=== PATIENT | male | born 1940 | race Caucasian/White ===

== ENCOUNTER 2020-07-08 19:38 | Inpatient (IN) | payer OTHER, MEDICARE ==
[2020-07-08] MEDS ORDERED: cefTRIAXone 1 GM in Sodium Chloride 0.9% 50 ML IV ONE (20:41)
[2020-07-08] MEDS ORDERED: Lactated Ringers 1,000 ML IV SCH ×2 (20:45→22:13)
[2020-07-08] MEDS ORDERED: Diltiazem 25 MG/5 ML SDV IVPUSH ONE (20:45)
[2020-07-08] MEDS: Sodium Chloride 0.9% 10 ML Syringe FLUSH PRN ×2 (20:51→22:22)
--- NOTE | 2020-07-08 20:51 | EDM.PDOC ---
ED HPI GENERAL MEDICAL PROBLEM - General Chief Complaint: General Stated Complaint: MEDICAL Time Seen by Provider: 07/08/20 20:02 Source of Information: Reports: Patient, Family, Old Records, RN Notes Reviewed History Limitations: Reports: No Limitations - History of Present Illness INITIAL COMMENTS - FREE TEXT/NARRATIVE: 79-year-old gentleman presents emergency department a complaint of fevers and chills, he has been ill for about 10 days progressively getting worse was evaluated in the clinic 2 days prior COVID test at that time was negative, started on doxycycline. He states he has progressively gotten more weak he does feel short of breath does not produce any sputum no urinary symptoms he states the fevers and chills will wax and wane multiple times per day to the point where he is very diaphoretic but chilled. Fevers have been around 100. There is a possible for potential exposure to cold bed as he was recently traveling out of [facility]. The other symptom is that he states he is dizzy with loss of balance that he is noticed over the last couple of days worse when the fever sit difficult for him to walk and he has to hold onto the wall - Related Data Allergies Allergy/AdvReac Type Severity Reaction Status Date / Time No Known Allergies Allergy Verified 07/08/20 20:07 Home Meds: Home Meds Aspirin 325 mg PO DAILY 07/08/20 [History] Doxycycline [Vibramycin] 100 mg PO BID 07/08/20 [History] Flaxseed Oil [Flax Oil] 0 mg PO ASDIRECTED 07/08/20 [History] Glucosam/Chondr/Collagn/Hyalur [Glucosamine & Chondroitin Cap] 0 mg PO ASDIRECTED 07/08/20 [History] Magnesium Gluconate [Mag-G] 27 mg PO DAILY 07/08/20 [History] Potassium Chloride [Klor-Con M20] 20 meq PO DAILY 07/08/20 [History] Ubidecarenone [Co Q-10] 0 mg PO ASDIRECTED 07/08/20 [History] Vitamin B Complex 0 cap PO ASDIRECTED 07/08/20 [History] Past Medical History Cardiovascular History: Reports: Afib Musculoskeletal History: Reports: Fracture Social & Family History - Tobacco Use Smoking Status *Q: Never Smoker - Caffeine Use Caffeine Use: Reports: None - Recreational Drug Use Recreational Drug Use: No ED ROS GENERAL - Review of Systems Review Of Systems: See Below Constitutional: Reports: Fever, Chills, Diaphoresis HEENT: Reports: No Symptoms Respiratory: Reports: Shortness of Breath. Denies: Cough, Sputum Cardiovascular: Reports: Dyspnea on Exertion GI/Abdominal: Reports: No Symptoms : Reports: No Symptoms Musculoskeletal: Reports: No Symptoms Skin: Reports: No Symptoms Neurological: Reports: Dizziness, Difficulty Walking Psychiatric: Reports: No Symptoms ED EXAM, GENERAL - Physical Exam Exam: See Below Exam Limited By: No Limitations General Appearance: Alert, WD/WN, No Apparent Distress Head: Atraumatic, Normocephalic Neck: Normal Inspection, Supple, Non-Tender, Full Range of Motion Respiratory/Chest: No Respiratory Distress, Lungs Clear, Normal Breath Sounds, No Accessory Muscle Use, Chest Non-Tender Cardiovascular: No Murmur, Irregularly Irregular GI/Abdominal: Soft, Non-Tender Extremities: No Pedal Edema Course - Vital Signs Last Recorded V/S: Last Vital Signs Temp 99.8 F 07/08/20 20:05 Pulse 98 07/08/20 21:53 Resp 22 H 07/08/20 21:53 BP 135/68 07/08/20 21:53 Pulse Ox 97 07/08/20 21:53 - Orders/Labs/Meds Orders: Active Orders 24 hr Category Date Time Status EKG Documentation Completion [RC] ASDIRECTED Care 07/08/20 20:43 Active Vital Signs [RC] Q1H Care 07/08/20 20:42 Active Ang Head [CT] Stat Exams 07/08/20 21:52 Ordered Chest 2V [CR] Stat Exams 07/08/20 20:42 Taken Head wo Cont [CT] Stat Exams 07/08/20 21:52 Ordered CULTURE BLOOD [BC] Urgent Lab 07/08/20 20:40 Received CULTURE BLOOD [BC] Urgent Lab 07/08/20 20:45 Received Diltiazem [Cardizem] 100 mg Med 07/08/20 22:00 Active Sodium Chloride 0.9% [Normal Saline] 100 ml IV TITRATE Iopamidol [Isovue-370 (76%)] Med 07/08/20 22:00 Active 100 ml IV . DIRECTED Lactated Ringers [Ringers, Lactated] 1,000 ml Med 07/08/20 22:13 Active IV ASDIRECTED Sodium Chloride 0.9% [Normal Saline] 100 ml Med 07/08/20 22:00 Active IV ASDIRECTED Sodium Chloride 0.9% [Saline Flush] Med 07/08/20 20:41 Active 10 ml FLUSH ASDIRECTED PRN Blood Culture x2 Reflex Set [OM.PC] Urgent Oth 07/08/20 20:42 Ordered Saline Lock Insert [OM.PC] Stat Oth 07/08/20 20:42 Ordered Severe Sepsis Onset Time [OM.PC] Stat Oth 07/08/20 20:42 Ordered EKG 12 Lead [EK] Stat Ther 07/08/20 20:41 Ordered Medication Orders Diltiazem HCl 100 mg/ Sodium (Chloride) 100 mls @ 5 mls/hr IV TITRATE SIVA; Protocol Sodium Chloride (Normal Saline) 100 mls @ 3 mls/sec IV ASDIRECTED SIVA Last Admin: 07/08/20 22:23 Dose: 3 mls/sec Documented by: ISMAEL Lactated Ringer's (Ringers, Lactated) 1,000 mls @ 999 mls/hr IV ASDIRECTED SIVA Iopamidol (Isovue-370 (76%)) 100 ml IV . DIRECTED SIVA Last Admin: 07/08/20 22:23 Dose: 100 ml Documented by: ISMAEL Sodium Chloride (Saline Flush) 10 ml FLUSH ASDIRECTED PRN PRN Reason: Keep Vein Open Last Admin: 07/08/20 22:22 Dose: 10 ml Documented by: Admin: 07/08/20 20:51 Dose: 10 ml Documented by: YAZ Labs: Laboratory Tests 07/08/20 07/08/20 07/08/20 Range/Units 20:40 20:40 20:40 WBC 5.4 (4.5-11.0) K/uL RBC 3.77 L (4.30-5.90) M/uL Hgb 11.2 L (12.0-15.0) g/dL Hct 32.5 L (40.0-54.0) % MCV 86 (80-98) fL MCH 30 (27-31) pg MCHC 35 (32-36) % Plt Count 54 L (150-400) K/uL Neut % (Auto) 62 (36-66) % Lymph % (Auto) 19 L (24-44) % [place] % (Auto) 17 H (2-6) % Eos % (Auto) 0 L (2-4) % Baso % (Auto) 2 H (0-1) % Sodium (140-148) mmol/L Potassium (3.6-5.2) mmol/L Chloride (100-108) mmol/L Carbon Dioxide (21-32) mmol/L Anion Gap (5.0-14.0) mmol/L BUN (7-18) mg/dL Creatinine (0.8-1.3) mg/dL Est Cr Clr Drug Dosing mL/min Estimated GFR (MDRD) (>60) Glucose (74-106) mg/dL Lactic Acid (0.4-2.0) mmol/L Calcium (8.5-10.1) mg/dL Phosphorus 2.8 (2.5-4.9) mg/dL Magnesium 1.9 (1.8-2.4) mg/dL Total Bilirubin (0.2-1.0) mg/dL AST (15-37) U/L ALT (12-78) U/L Alkaline Phosphatase (46-116) U/L Troponin I < 0.017 (0.000-0.056) ng/mL C-Reactive Protein (0.0-0.3) mg/dL Total Protein (6.4-8.2) g/dL Albumin (3.4-5.0) g/dL Globulin (2.3-3.5) g/dL Albumin/Globulin Ratio (1.2-2.2) Lipase 163 (73-393) U/L Procalcitonin ng/mL Urine Color (YELLOW) Urine Appearance (CLEAR) Urine pH (5.0-8.0) Ur Specific Reese (1.008-1.030) Urine Protein (NEGATIVE) mg/dL Urine Glucose (UA) (NEGATIVE) mg/dL Urine Ketones (NEGATIVE) mg/dL Urine Occult Blood (NEGATIVE) Urine Nitrite (NEGATIVE) Urine Bilirubin (NEGATIVE) Urine Urobilinogen (0.2-1.0) EU/dL Ur Leukocyte Esterase (NEGATIVE) Urine RBC (0-5) Urine WBC (0-5) Ur Epithelial Cells Amorphous Sediment Urine Bacteria Urine Mucus 07/08/20 07/08/20 07/08/20 Range/Units 20:40 20:40 20:42 WBC (4.5-11.0) K/uL RBC (4.30-5.90) M/uL Hgb (12.0-15.0) g/dL Hct (40.0-54.0) % MCV (80-98) fL MCH (27-31) pg MCHC (32-36) % Plt Count (150-400) K/uL Neut % (Auto) (36-66) % Lymph % (Auto) (24-44) % [place] % (Auto) (2-6) % Eos % (Auto) (2-4) % Baso % (Auto) (0-1) % Sodium 133 L (140-148) mmol/L Potassium 4.0 (3.6-5.2) mmol/L Chloride 100 (100-108) mmol/L Carbon Dioxide 24 (21-32) mmol/L Anion Gap 13.0 (5.0-14.0) mmol/L BUN 20 H (7-18) mg/dL Creatinine 1.1 (0.8-1.3) mg/dL Est Cr Clr Drug Dosing 51.54 mL/min Estimated GFR (MDRD) > 60 (>60) Glucose 110 H (74-106) mg/dL Lactic Acid 1.5 (0.4-2.0) mmol/L Calcium 7.8 L (8.5-10.1) mg/dL Phosphorus (2.5-4.9) mg/dL Magnesium (1.8-2.4) mg/dL Total Bilirubin 0.8 (0.2-1.0) mg/dL AST 70 H (15-37) U/L ALT 64 (12-78) U/L Alkaline Phosphatase 72 (46-116) U/L Troponin I (0.000-0.056) ng/mL C-Reactive Protein 10.89 H (0.0-0.3) mg/dL Total Protein 6.6 (6.4-8.2) g/dL Albumin 2.8 L (3.4-5.0) g/dL Globulin 3.8 H (2.3-3.5) g/dL Albumin/Globulin Ratio 0.7 L (1.2-2.2) Lipase (73-393) U/L Procalcitonin 3.55 H* ng/mL Urine Color (YELLOW) Urine Appearance (CLEAR) Urine pH (5.0-8.0) Ur Specific Reese (1.008-1.030) Urine Protein (NEGATIVE) mg/dL Urine Glucose (UA) (NEGATIVE) mg/dL Urine Ketones (NEGATIVE) mg/dL Urine Occult Blood (NEGATIVE) Urine Nitrite (NEGATIVE) Urine Bilirubin (NEGATIVE) Urine Urobilinogen (0.2-1.0) EU/dL Ur Leukocyte Esterase (NEGATIVE) Urine RBC (0-5) Urine WBC (0-5) Ur Epithelial Cells Amorphous Sediment Urine Bacteria Urine Mucus 07/08/20 Range/Units 20:57 WBC (4.5-11.0) K/uL RBC (4.30-5.90) M/uL Hgb (12.0-15.0) g/dL Hct (40.0-54.0) % MCV (80-98) fL MCH (27-31) pg MCHC (32-36) % Plt Count (150-400) K/uL Neut % (Auto) (36-66) % Lymph % (Auto) (24-44) % [place] % (Auto) (2-6) % Eos % (Auto) (2-4) % Baso % (Auto) (0-1) % Sodium (140-148) mmol/L Potassium (3.6-5.2) mmol/L Chloride (100-108) mmol/L Carbon Dioxide (21-32) mmol/L Anion Gap (5.0-14.0) mmol/L BUN (7-18) mg/dL Creatinine (0.8-1.3) mg/dL Est Cr Clr Drug Dosing mL/min Estimated GFR (MDRD) (>60) Glucose (74-106) mg/dL Lactic Acid (0.4-2.0) mmol/L Calcium (8.5-10.1) mg/dL Phosphorus (2.5-4.9) mg/dL Magnesium (1.8-2.4) mg/dL Total Bilirubin (0.2-1.0) mg/dL AST (15-37) U/L ALT (12-78) U/L Alkaline Phosphatase (46-116) U/L Troponin I (0.000-0.056) ng/mL C-Reactive Protein (0.0-0.3) mg/dL Total Protein (6.4-8.2) g/dL Albumin (3.4-5.0) g/dL Globulin (2.3-3.5) g/dL Albumin/Globulin Ratio (1.2-2.2) Lipase (73-393) U/L Procalcitonin ng/mL Urine Color Yellow (YELLOW) Urine Appearance Slightly cloudy A (CLEAR) Urine pH 5.5 (5.0-8.0) Ur Specific Reese 1.025 (1.008-1.030) Urine Protein 100 H (NEGATIVE) mg/dL Urine Glucose (UA) Negative (NEGATIVE) mg/dL Urine Ketones Negative (NEGATIVE) mg/dL Urine Occult Blood Trace-intact H (NEGATIVE) Urine Nitrite Negative (NEGATIVE) Urine Bilirubin Negative (NEGATIVE) Urine Urobilinogen 0.2 (0.2-1.0) EU/dL Ur Leukocyte Esterase Negative (NEGATIVE) Urine RBC 0-5 (0-5) Urine WBC 0-5 (0-5) Ur Epithelial Cells Rare Amorphous Sediment Not seen Urine Bacteria Moderate Urine Mucus Rare Meds: Medications Generic Name Dose Route Start Last Admin Trade Name Freq PRN Reason Stop Dose Admin Diltiazem HCl 100 mg/ Sodium 100 mls @ 5 mls/hr 07/08/20 22:00 Chloride IV TITRATE SIVA Protocol 5 MG/HR Sodium Chloride 100 mls @ 3 mls/sec 07/08/20 22:00 07/08/20 22:23 Normal Saline IV 3 mls/sec ASDIRECTED SIVA Administration Lactated Ringer's 1,000 mls @ 999 mls/hr 07/08/20 22:13 Ringers, Lactated IV ASDIRECTED SIVA Iopamidol 100 ml 07/08/20 22:00 07/08/20 22:23 Isovue-370 (76%) IV 100 ml . DIRECTED SIVA Administration Sodium Chloride 10 ml 07/08/20 20:41 07/08/20 22:22 Saline Flush FLUSH 10 ml ASDIRECTED PRN Administration Keep Vein Open Discontinued Medications Generic Name Dose Route Start Last Admin Trade Name Freq PRN Reason Stop Dose Admin Diltiazem HCl 20 mg 07/08/20 20:45 07/08/20 20:51 Diltiazem IVPUSH 07/08/20 20:46 20 mg ONETIME ONE Administration Lactated Ringer's 1,000 mls @ 999 mls/hr 07/08/20 20:45 07/08/20 20:51 Ringers, Lactated IV 999 mls/hr ASDIRECTED SIVA Administration Ceftriaxone Sodium 1 gm/ 50 mls @ 100 mls/hr 07/08/20 20:41 07/08/20 20:55 Sodium Chloride IV 07/08/20 21:10 100 mls/hr STAT ONE Administration Departure - Departure Time of Disposition: 22:27 Disposition: Admitted As Inpatient 65 Condition: Fair Clinical Impression: Atrial fibrillation with rapid ventricular response - Discharge Information Referrals: PCP,None [Primary Care Provider] - Forms: ED Department Discharge Sepsis Event Note (ED) - Evaluation Sepsis Screening Result: Possible Severe Sepsis Risk - Focused Exam Vital Signs: Vital Signs Temp Pulse Resp BP Pulse Ox 07/08/20 21:53 98 22 H 135/68 97 07/08/20 21:07 124 H 20 139/80 94 L 07/08/20 21:06 104 H 15 139/80 95 07/08/20 20:26 111 H 114/77 07/08/20 20:05 99.8 F 104 H 16 140/72 96 07/08/20 20:01 99.8 F 104 H 16 140/72 96 - My Orders Last 24 Hours: My Active Orders 07/08/20 20:40 CULTURE BLOOD [BC] Urgent 07/08/20 20:41 Sodium Chloride 0.9% [Saline Flush] 10 ml FLUSH ASDIRECTED PRN EKG 12 Lead [EK] Stat 07/08/20 20:42 Vital Signs [RC] Q1H Chest 2V [CR] Stat Blood Culture x2 Reflex Set [OM.PC] Urgent Saline Lock Insert [OM.PC] Stat Severe Sepsis Onset Time [OM.PC] Stat 07/08/20 20:43 EKG Documentation Completion [RC] ASDIRECTED 07/08/20 20:45 CULTURE BLOOD [BC] Urgent 07/08/20 21:52 Ang Head [CT] Stat Head wo Cont [CT] Stat 07/08/20 22:00 Diltiazem [Cardizem] 100 mg Sodium Chloride 0.9% [Normal Saline] 100 ml IV TITRATE Iopamidol [Isovue-370 (76%)] 100 ml IV . DIRECTED Sodium Chloride 0.9% [Normal Saline] 100 ml IV ASDIRECTED 07/08/20 22:13 Lactated Ringers [Ringers, Lactated] 1,000 ml IV ASDIRECTED - Assessment/Plan Last 24 Hours: My Active Orders 07/08/20 20:40 CULTURE BLOOD [BC] Urgent 07/08/20 20:41 Sodium Chloride 0.9% [Saline Flush] 10 ml FLUSH ASDIRECTED PRN EKG 12 Lead [EK] Stat 07/08/20 20:42 Vital Signs [RC] Q1H Chest 2V [CR] Stat Blood Culture x2 Reflex Set [OM.PC] Urgent Saline Lock Insert [OM.PC] Stat Severe Sepsis Onset Time [OM.PC] Stat 07/08/20 20:43 EKG Documentation Completion [RC] ASDIRECTED 07/08/20 20:45 CULTURE BLOOD [BC] Urgent 07/08/20 21:52 Ang Head [CT] Stat Head wo Cont [CT] Stat 07/08/20 22:00 Diltiazem [Cardizem] 100 mg Sodium Chloride 0.9% [Normal Saline] 100 ml IV TITRATE Iopamidol [Isovue-370 (76%)] 100 ml IV . DIRECTED Sodium Chloride 0.9% [Normal Saline] 100 ml IV ASDIRECTED 07/08/20 22:13 Lactated Ringers [Ringers, Lactated] 1,000 ml IV ASDIRECTED Plan: Assessment Acuity = acute Site and laterality = atrial fibrillation with rapid ventricular response, concern for early sepsis with underlying infection probable tickborne illness Etiology = unknown Manifestations = weakness, gait instability Location of injury = Home Lab values = hemoglobin low at 11.2 consistent normochromic anemia platelets low at 54 consistent thrombocytopenia sodium low at 133 consistent hyponatremia calcium low at 7.8 consistent hypocalcemia AST elevated 70 consistent with elevated liver enzymes CRP elevated 10.89, lipase normal troponin normal procalcitonin elevated 3.[address] scan of the head and CTA of the head pending chest x-ray I did review films myself I cannot appreciate any acute process, the official read from radiology is pending EKG demonstrates atrial fibrillation Plan Call discussed case with hospitalist on-call at [phone] kindly agreed to come and evaluate the patient in the emergency department for admission, thus far has received 2 L of lactated Ringer's 1 dose of Rocephin blood cultures drawn, given 20 mg Cardizem initiated Cardizem drip This note was dictated using [employer] voice recognition software please call with any questions on syntax or grammar.
[2020-07-08] MEDS ORDERED: Sodium Chloride 0.9% 100 ML IV SCH (22:00)
[2020-07-08] MEDS ORDERED: Iopamidol 755 Mg/ML 100 ML Bottle IV SCH (22:00)
[2020-07-08] MEDS: Diltiazem 100 MG in Sodium Chloride 0.9% 100 ML IV SCH (22:31)
--- NOTE | 2020-07-08 22:52 | CRLCT ---
INDICATION: Unsteady. Difficulty walking. Stroke protocol TECHNIQUE: CT head without contrast. COMPARISON: None available FINDINGS: There is age-related cerebral and cerebellar cortical atrophy with proportionate ventriculomegaly. There is no mass effect or midline shift. White matter hypodensities are suggestive of mild chronic small vessel ischemic changes. There is no loss of valdez-white differentiation. There is no evidence of an acute intracranial hemorrhage. No acute calvarial fracture is seen. The visualized paranasal sinuses and mastoid air cells are clear. Post cataract surgery changes are seen. IMPRESSION: No evidence of an acute intracranial hemorrhage, mass effect or loss of valdez-white differentiation. Age-related atrophy and chronic small vessel ischemic changes. Dictated by Matt Keyes MD @ 07/08/2020 10:50:40 PM Please note that all CT scans at this facility use dose modulation, iterative reconstruction, and/or weight-based dosing when appropriate to reduce radiation dose to as low as reasonably achievable. Dictated by: Matt Keyes MD @ 07/08/2020 22:50:46 (Electronically Signed)
--- NOTE | 2020-07-08 22:56 | CRLCT ---
DATE: 07/08/2020. CLINICAL HISTORY: Patient with difficulty walking and unsteadiness. TECHNIQUE: Standard helical CT image acquisition through the intracranial circulation following intravenous administration of contrast material with bolus tracking. Multiplanar reconstructed images were performed and interpreted. COMPARISON: None. FINDINGS: There is no cerebral aneurysm or large vessel occlusion. The right internal carotid artery is normal. The right middle cerebral artery and its branches are normal. The right anterior cerebral artery and its branches are normal. The left internal carotid artery is normal. The left middle cerebral artery and its branches are normal. The left anterior cerebral artery and its branches are normal. The anterior communicating artery is well visualized and appears normal. The right vertebral artery and left vertebral artery are normal. Bilateral AICA-PICA systems which appear normal. The vertebral arteries are codominant. The basilar artery is patent and appears normal. The right posterior cerebral artery is normal. The left posterior cerebral artery is normal. The visualized venous structures are patent. IMPRESSION: Normal CT angiogram of the head without intracranial aneurysm or other neurovascular abnormality. Please note that all CT scans at this facility use dose modulation, iterative reconstruction, and/or weight-based dosing when appropriate to reduce radiation dose to as low as reasonably achievable. Dictated by Aleksandr Barrios MD @ Jul 09 2020 1:56PM Signed by Dr. Aleksandr Barrios @ Jul 09 2020 2:04PM
--- NOTE | 2020-07-08 23:40 | PCM.HP.2 ---
H&P History of Present Illness - General Date of Service: 07/08/20 Admit Problem/Dx: Admission Diagnosis/Problem Admission Diagnosis/Problem Human anaplasmosis Source of Information: Patient, Provider History Limitations: Reports: No Limitations - History of Present Illness Initial Comments - Free Text/Narative: CC: I was sweating so much HPI: Ed presents to the emergency room with fevers, chills, diaphoresis as well as headache and fatigue. He reports symptoms have progressed over the past week. Initial symptoms included fatigue as well as some diffuse arthralgias and myalgias. He was not able to complete his running workouts with as much efficiency as usual. Over the last several days he has developed a mild achy diffuse headache. The headache has improved with hydration. This seems to get worse when he is not able to take enough fluids. He has had episodes of subjective fever followed by shaking chills and then diffuse diaphoresis. The most pronounced episodes have happened in the evening. He does not report abdominal pain or nausea. Appetite has been pretty good. Energy has been down from usual. No change in bowel or bladder habits. No skin rashes. No complaints of chest pain or palpitations but he has had some dizziness. He does live in the [facility] [facility] but is not aware of obvious tick bite recently. He has not traveled or been around anyone who is been sick. He was seen in the clinic 3 days ago and started on doxycycline. He has had 2 days of doxycycline but things are getting worse. He was tested for COVID at that time and this was negative. Work-up in the emergency room revealed borderline leukopenia as well as thrombocytopenia and mild elevation of AST. C-reactive protein and procalcitonin are both quite elevated. There is suspicion for anaplasmosis. He has received ceftriaxone and IV fluids. He is also in atrial fibrillation with a rapid ventricular response. He is on a diltiazem infusion with good rate control. - Related Data Allergies/Adverse Reactions: Allergies Allergy/AdvReac Type Severity Reaction Status Date / Time No Known Allergies Allergy Verified 07/08/20 20:07 Home Medications: Home Meds Aspirin 325 mg PO DAILY 07/08/20 [History] Doxycycline [Vibramycin] 100 mg PO BID 07/08/20 [History] Flaxseed Oil [Flax Oil] 0 mg PO ASDIRECTED 07/08/20 [History] Glucosam/Chondr/Collagn/Hyalur [Glucosamine & Chondroitin Cap] 0 mg PO ASDIRECTED 07/08/20 [History] Magnesium Gluconate [Mag-G] 27 mg PO DAILY 07/08/20 [History] Potassium Chloride [Klor-Con M20] 20 meq PO DAILY 07/08/20 [History] Ubidecarenone [Co Q-10] 0 mg PO ASDIRECTED 07/08/20 [History] Vitamin B Complex 0 cap PO ASDIRECTED 07/08/20 [History] Past Medical History Cardiovascular History: Reports: Afib Musculoskeletal History: Reports: Fracture Social & Family History - Family History Cardiac: Denies: CAD - Tobacco Use Smoking Status *Q: Never Smoker - Caffeine Use Caffeine Use: Reports: None - Recreational Drug Use Recreational Drug Use: No H&P Review of Systems - Review of Systems: Review Of Systems: See Below Free Text/Narrative: A complete 12 point review of systems was obtained. Pertinent positives and negatives are noted in the history of present illness. All other systems were reviewed and were negative except as noted. Exam - Exam Exam: See Below - Vital Signs Vital Signs: Last Vital Signs Temp 37.7 C 07/08/20 20:05 Pulse 95 07/08/20 23:00 Resp 20 07/08/20 23:00 BP 114/84 07/08/20 23:00 Pulse Ox 95 07/08/20 23:00 Weight: 68.039 kg - Exam Quality Assessment: No: Supplemental Oxygen General: Alert, Oriented, Cooperative. No: Mild Distress HEENT: Conjunctiva Clear, Mucosa Moist & [place]. No: Scleral Icterus Neck: Supple, Trachea Midline Lungs: Clear to Auscultation, Normal Respiratory Effort Cardiovascular: Regular Rate, Irregular Rhythm. No: Systolic Murmur GI/Abdominal Exam: Normal Bowel Sounds, Soft, Non-Tender, No Distention Back Exam: Normal Inspection, Full Range of Motion Extremities: No Pedal Edema. No: Increased Warmth Skin: Warm, Dry. No: Rash Neuro Extensive - Mental Status: Alert, Oriented x3, Nl Response to Commands Neuro Extensive - Motor, Sensory, Reflexes: No: Dysarthria, Abnormal Motor, Tremor Psychiatric: Alert, Normal Affect - Patient Data Lab Results Last 24 hrs: Laboratory Results - last 24 hr 08/12/20 08/12/20 08/12/20 Range/Units 20:40 20:40 20:40 WBC 5.4 (4.5-11.0) K/uL RBC 3.77 L (4.30-5.90) M/uL Hgb 11.2 L (12.0-15.0) g/dL Hct 32.5 L (40.0-54.0) % MCV 86 (80-98) fL MCH 30 (27-31) pg MCHC 35 (32-36) % Plt Count 54 L (150-400) K/uL Neut % (Auto) 62 (36-66) % Lymph % (Auto) 19 L (24-44) % [place] % (Auto) 17 H (2-6) % Eos % (Auto) 0 L (2-4) % Baso % (Auto) 2 H (0-1) % Sodium (140-148) mmol/L Potassium (3.6-5.2) mmol/L Chloride (100-108) mmol/L Carbon Dioxide (21-32) mmol/L Anion Gap (5.0-14.0) mmol/L BUN (7-18) mg/dL Creatinine (0.8-1.3) mg/dL Est Cr Clr Drug Dosing mL/min Estimated GFR (MDRD) (>60) Glucose (74-106) mg/dL Lactic Acid (0.4-2.0) mmol/L Calcium (8.5-10.1) mg/dL Phosphorus 2.8 (2.5-4.9) mg/dL Magnesium 1.9 (1.8-2.4) mg/dL Total Bilirubin (0.2-1.0) mg/dL AST (15-37) U/L ALT (12-78) U/L Alkaline Phosphatase (46-116) U/L Troponin I < 0.017 (0.000-0.056) ng/mL C-Reactive Protein (0.0-0.3) mg/dL Total Protein (6.4-8.2) g/dL Albumin (3.4-5.0) g/dL Globulin (2.3-3.5) g/dL Albumin/Globulin Ratio (1.2-2.2) Lipase 163 (73-393) U/L Procalcitonin ng/mL Urine Color (YELLOW) Urine Appearance (CLEAR) Urine pH (5.0-8.0) Ur Specific [place] (1.008-1.030) Urine Protein (NEGATIVE) mg/dL Urine Glucose (UA) (NEGATIVE) mg/dL Urine Ketones (NEGATIVE) mg/dL Urine Occult Blood (NEGATIVE) Urine Nitrite (NEGATIVE) Urine Bilirubin (NEGATIVE) Urine Urobilinogen (0.2-1.0) EU/dL Ur Leukocyte Esterase (NEGATIVE) Urine RBC (0-5) Urine WBC (0-5) Ur Epithelial Cells Amorphous Sediment Urine Bacteria Urine Mucus 07/08/20 07/08/20 07/08/20 Range/Units 20:40 20:40 20:42 WBC (4.5-11.0) K/uL RBC (4.30-5.90) M/uL Hgb (12.0-15.0) g/dL Hct (40.0-54.0) % MCV (80-98) fL MCH (27-31) pg MCHC (32-36) % Plt Count (150-400) K/uL Neut % (Auto) (36-66) % Lymph % (Auto) (24-44) % [place] % (Auto) (2-6) % Eos % (Auto) (2-4) % Baso % (Auto) (0-1) % Sodium 133 L (140-148) mmol/L Potassium 4.0 (3.6-5.2) mmol/L Chloride 100 (100-108) mmol/L Carbon Dioxide 24 (21-32) mmol/L Anion Gap 13.0 (5.0-14.0) mmol/L BUN 20 H (7-18) mg/dL Creatinine 1.1 (0.8-1.3) mg/dL Est Cr Clr Drug Dosing 51.54 mL/min Estimated GFR (MDRD) > 60 (>60) Glucose 110 H (74-106) mg/dL Lactic Acid 1.5 (0.4-2.0) mmol/L Calcium 7.8 L (8.5-10.1) mg/dL Phosphorus (2.5-4.9) mg/dL Magnesium (1.8-2.4) mg/dL Total Bilirubin 0.8 (0.2-1.0) mg/dL AST 70 H (15-37) U/L ALT 64 (12-78) U/L Alkaline Phosphatase 72 (46-116) U/L Troponin I (0.000-0.056) ng/mL C-Reactive Protein 10.89 H (0.0-0.3) mg/dL Total Protein 6.6 (6.4-8.2) g/dL Albumin 2.8 L (3.4-5.0) g/dL Globulin 3.8 H (2.3-3.5) g/dL Albumin/Globulin Ratio 0.7 L (1.2-2.2) Lipase (73-393) U/L Procalcitonin 3.55 H* ng/mL Urine Color (YELLOW) Urine Appearance (CLEAR) Urine pH (5.0-8.0) Ur Specific [place] (1.008-1.030) Urine Protein (NEGATIVE) mg/dL Urine Glucose (UA) (NEGATIVE) mg/dL Urine Ketones (NEGATIVE) mg/dL Urine Occult Blood (NEGATIVE) Urine Nitrite (NEGATIVE) Urine Bilirubin (NEGATIVE) Urine Urobilinogen (0.2-1.0) EU/dL Ur Leukocyte Esterase (NEGATIVE) Urine RBC (0-5) Urine WBC (0-5) Ur Epithelial Cells Amorphous Sediment Urine Bacteria Urine Mucus 07/08/20 Range/Units 20:57 WBC (4.5-11.0) K/uL RBC (4.30-5.90) M/uL Hgb (12.0-15.0) g/dL Hct (40.0-54.0) % MCV (80-98) fL MCH (27-31) pg MCHC (32-36) % Plt Count (150-400) K/uL Neut % (Auto) (36-66) % Lymph % (Auto) (24-44) % [place] % (Auto) (2-6) % Eos % (Auto) (2-4) % Baso % (Auto) (0-1) % Sodium (140-148) mmol/L Potassium (3.6-5.2) mmol/L Chloride (100-108) mmol/L Carbon Dioxide (21-32) mmol/L Anion Gap (5.0-14.0) mmol/L BUN (7-18) mg/dL Creatinine (0.8-1.3) mg/dL Est Cr Clr Drug Dosing mL/min Estimated GFR (MDRD) (>60) Glucose (74-106) mg/dL Lactic Acid (0.4-2.0) mmol/L Calcium (8.5-10.1) mg/dL Phosphorus (2.5-4.9) mg/dL Magnesium (1.8-2.4) mg/dL Total Bilirubin (0.2-1.0) mg/dL AST (15-37) U/L ALT (12-78) U/L Alkaline Phosphatase (46-116) U/L Troponin I (0.000-0.056) ng/mL C-Reactive Protein (0.0-0.3) mg/dL Total Protein (6.4-8.2) g/dL Albumin (3.4-5.0) g/dL Globulin (2.3-3.5) g/dL Albumin/Globulin Ratio (1.2-2.2) Lipase (73-393) U/L Procalcitonin ng/mL Urine Color Yellow (YELLOW) Urine Appearance Slightly cloudy A (CLEAR) Urine pH 5.5 (5.0-8.0) Ur Specific [place] 1.025 (1.008-1.030) Urine Protein 100 H (NEGATIVE) mg/dL Urine Glucose (UA) Negative (NEGATIVE) mg/dL Urine Ketones Negative (NEGATIVE) mg/dL Urine Occult Blood Trace-intact H (NEGATIVE) Urine Nitrite Negative (NEGATIVE) Urine Bilirubin Negative (NEGATIVE) Urine Urobilinogen 0.2 (0.2-1.0) EU/dL Ur Leukocyte Esterase Negative (NEGATIVE) Urine RBC 0-5 (0-5) Urine WBC 0-5 (0-5) Ur Epithelial Cells Rare Amorphous Sediment Not seen Urine Bacteria Moderate Urine Mucus Rare Result Diagrams: 07/08/20 20:40 07/08/20 20:40 Imaging Impressions Last 24 hrs: CT head-images personally reviewed-no acute findings such as mass, hemorrhage or stroke. CT head angio-Per the radiologist read there were no acute findings or stenoses EKG INTERPRETATION EKG Date: 07/08/20 Rhythm: A-Fib Rate (Beats/Min): 108 [place]: Normal P-Wave: Variable QRS: Normal ST-T: Normal QT: Normal Comparison: NA - No Prior EKG Sepsis Event Note - Evaluation Sepsis Screening Result: Possible Severe Sepsis Risk - Focused Exam Vital Signs: Vital Signs Temp Pulse Resp BP Pulse Ox 07/08/20 23:00 95 20 114/84 95 07/08/20 22:39 94 17 127/71 95 07/08/20 21:53 98 22 H 135/68 97 07/08/20 21:07 124 H 20 139/80 94 L 07/08/20 21:06 104 H 15 139/80 95 07/08/20 20:26 111 H 114/77 07/08/20 20:05 37.7 C 104 H 16 140/72 96 07/08/20 20:01 37.7 C 104 H 16 140/72 96 *Q Meaningful Use (ADM) - VTE Risk Assess *Q Each Risk Factor Represents 1 Point: None Total Score 1 Point Risk Factors: 0 Each Risk Factor Represents 2 Points: None Total Score 2 Point Risk Factors: 0 Each Risk Factor Represents 3 Points: Age 75 Years or Greater Total Score 3 Point Risk Factors: 3 Each Risk Factor Represents 5 Points: None Total Score 5 Point Risk Factors: 0 Venous Thromboembolism Risk Factor Score *Q: 3 - Problem List (1) Anaplasmosis SNOMED Code(s): 128473692 ICD Code: A77.49 - OTHER EHRLICHIOSIS Status: Acute Current Visit: Yes (2) Atrial fibrillation with rapid ventricular response SNOMED Code(s): 065494009166565 ICD Code: I48.91 - UNSPECIFIED ATRIAL FIBRILLATION Status: Acute Current Visit: Yes Problem List Initiated/Reviewed/Updated: Yes Orders Last 24hrs: Active Orders 24 hr Category Date Time Status Patient Status Manage Transfer [TRANSFER] Routine ADT 07/08/20 23:30 Ordered EKG Documentation Completion [RC] ASDIRECTED Care 07/08/20 20:43 Active Vital Signs [RC] Q1H Care 07/08/20 20:42 Active Chest 2V [CR] Stat Exams 07/08/20 20:42 Taken CULTURE BLOOD [BC] Urgent Lab 07/08/20 20:40 Received CULTURE BLOOD [BC] Urgent Lab 07/08/20 20:45 Received Diltiazem [Cardizem] 100 mg Med 07/08/20 22:00 Active Sodium Chloride 0.9% [Normal Saline] 100 ml IV TITRATE Iopamidol [Isovue-370 (76%)] Med 07/08/20 22:00 Active 100 ml IV . DIRECTED Lactated Ringers [Ringers, Lactated] 1,000 ml Med 07/08/20 22:13 Active IV ASDIRECTED Sodium Chloride 0.9% [Normal Saline] 100 ml Med 07/08/20 22:00 Active IV ASDIRECTED Sodium Chloride 0.9% [Saline Flush] Med 07/08/20 20:41 Active 10 ml FLUSH ASDIRECTED PRN Blood Culture x2 Reflex Set [OM.PC] Urgent Oth 07/08/20 20:42 Ordered Saline Lock Insert [OM.PC] Stat Oth 07/08/20 20:42 Ordered Severe Sepsis Onset Time [OM.PC] Stat Oth 07/08/20 20:42 Ordered Resuscitation Status Routine Resus Stat 07/08/20 23:32 Ordered EKG 12 Lead [EK] Stat Ther 07/08/20 20:41 Ordered Medication Orders Diltiazem HCl 100 mg/ Sodium (Chloride) 100 mls @ 5 mls/hr IV TITRATE SIVA; Protocol Last Admin: 07/08/20 22:31 Dose: 5 mg/hr, 5 mls/hr Documented by: YAZ Sodium Chloride (Normal Saline) 100 mls @ 3 mls/sec IV ASDIRECTED [facility] Last Admin: 07/08/20 22:23 Dose: 3 mls/sec Documented by: ISMAEL Lactated Ringer's (Ringers, Lactated) 1,000 mls @ 999 mls/hr IV ASDIRECTED SIVA Last Admin: 07/08/20 22:31 Dose: 999 mls/hr Documented by: YAZ Iopamidol (Isovue-370 (76%)) 100 ml IV . 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 No other obvious source for infection. Things are getting worse despite being on oral doxycycline. He did receive ceftriaxone in the emergency room. -IV doxycycline -IV fluids overnight -Acetaminophen and/or ibuprofen for fever -Follow-up labs in the morning -Serology for tickborne disease in the morning Atrial fibrillation with rapid ventricular response-rate is under good control with the diltiazem infusion. I suspect that he is in atrial fibrillation because of the infection and I would anticipate this will resolve after treating the infection. Electrolytes are acceptable. -Continue diltiazem infusion -Cardiac monitoring -Continue aspirin Maintenance issues - - DVT prophylaxis - patient will be ambulatory - GI prophylaxis -not indicated - Nutrition -regular diet - [place] catheter -not indicated CODE STATUS -full code Admission justification -patient will be referred observation status for initiation of IV antibiotics as well as rate control with his atrial fibrillation Disposition -I would anticipate discharge home after the hospital stay Primary care physician - Cody Ryan M.D. - Mortality Measure Prognosis:: Good
[2020-07-09] MEDS ORDERED: Ondansetron 4 MG Tab.DIS PO PRN (00:01)
[2020-07-09] MEDS ORDERED: LORazepam 2 MG/ML SDV IVPUSH PRN (00:01)
[2020-07-09] MEDS ORDERED: Magnesium Hydroxide 400 MG/5 ML Susp 30 ML Cup PO PRN (00:01)
[2020-07-09] MEDS ORDERED: Sodium Chloride 0.9% 1,000 ML IV SCH (00:01)
[2020-07-09] MEDS ORDERED: Ondansetron 4 MG/2 ML SDV IV PRN (00:01)
[2020-07-09] MEDS: Diltiazem 100 MG in Sodium Chloride 0.9% 100 ML IV SCH (00:03)
[2020-07-09] MEDS: Doxycycline 100 MG in Sodium Chloride 0.9% 100 ML IV SCH ×2 (01:04→12:43)
[2020-07-09] MEDS: Melatonin 3 MG Tab PO PRN (01:04)
[2020-07-09] MEDS: Acetaminophen 325 MG Tab PO PRN ×4 (01:05→20:58)
--- NOTE | 2020-07-09 09:11 | PCM.PN ---
- General Info Date of Service: 07/09/20 Subjective Update: No acute events overnight following admission. He is still in atrial fibrillation but his rate control has improved. He did have episodes of diaphoresis this morning but had a decent night. Low-grade fevers were noted. Still has myalgias in the generalized headache. White blood cell count and platelets are still low. Hemoglobin has dropped since yesterday and this did raise concern for additional tickborne illness. 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 Functional Status: Reports: Pain Controlled - Review of Systems General: Reports: Fever, Night Sweats Musculoskeletal: Reports: Other (diffuse myalgias ) Neurological: Reports: Headache - Patient Data Vitals - Most Recent: Last Vital Signs Temp 36.6 C 07/09/20 05:47 Pulse 95 07/08/20 23:00 Resp 20 07/09/20 05:47 BP 120/73 07/09/20 05:47 Pulse Ox 96 07/09/20 05:47 Weight - Most Recent: 70.3 kg I&O - Last 24 Hours: Intake & Output 07/08/20 07/09/20 07/09/20 22:59 06:59 14:59 Intake Total 3242 Output Total 250 Balance 2992 Lab Results Last 24 Hours: Laboratory Results - last 24 hr 07/08/20 07/08/20 07/08/20 Range/Units 20:40 20:40 20:40 WBC 5.4 (4.5-11.0) K/uL RBC 3.77 L (4.30-5.90) M/uL Hgb 11.2 L (12.0-15.0) g/dL Hct 32.5 L (40.0-54.0) % MCV 86 (80-98) fL MCH 30 (27-31) pg MCHC 35 (32-36) % Plt Count 54 L (150-400) K/uL Neut % (Auto) 62 (36-66) % Lymph % (Auto) 19 L (24-44) % Moody % (Auto) 17 H (2-6) % Eos % (Auto) 0 L (2-4) % Baso % (Auto) 2 H (0-1) % Sodium (140-148) mmol/L Potassium (3.6-5.2) mmol/L Chloride (100-108) mmol/L Carbon Dioxide (21-32) mmol/L Anion Gap (5.0-14.0) mmol/L BUN (7-18) mg/dL Creatinine (0.8-1.3) mg/dL Est Cr Clr Drug Dosing mL/min Estimated GFR (MDRD) (>60) Glucose (74-106) mg/dL Lactic Acid (0.4-2.0) mmol/L Calcium (8.5-10.1) mg/dL Phosphorus 2.8 (2.5-4.9) mg/dL Magnesium 1.9 (1.8-2.4) mg/dL Total Bilirubin (0.2-1.0) mg/dL AST (15-37) U/L ALT (12-78) U/L Alkaline Phosphatase (46-116) U/L Troponin I < 0.017 (0.000-0.056) ng/mL C-Reactive Protein (0.0-0.3) mg/dL Total Protein (6.4-8.2) g/dL Albumin (3.4-5.0) g/dL Globulin (2.3-3.5) g/dL Albumin/Globulin Ratio (1.2-2.2) Lipase 163 (73-393) U/L Procalcitonin ng/mL Urine Color (YELLOW) Urine Appearance (CLEAR) Urine pH (5.0-8.0) Ur Specific [place] (1.008-1.030) Urine Protein (NEGATIVE) mg/dL Urine Glucose (UA) (NEGATIVE) mg/dL Urine Ketones (NEGATIVE) mg/dL Urine Occult Blood (NEGATIVE) Urine Nitrite (NEGATIVE) Urine Bilirubin (NEGATIVE) Urine Urobilinogen (0.2-1.0) EU/dL Ur Leukocyte Esterase (NEGATIVE) Urine RBC (0-5) Urine WBC (0-5) Ur Epithelial Cells Amorphous Sediment Urine Bacteria Urine Mucus 07/08/20 07/08/20 07/08/20 Range/Units 20:40 20:40 20:42 WBC (4.5-11.0) K/uL RBC (4.30-5.90) M/uL Hgb (12.0-15.0) g/dL Hct (40.0-54.0) % MCV (80-98) fL MCH (27-31) pg MCHC (32-36) % Plt Count (150-400) K/uL Neut % (Auto) (36-66) % Lymph % (Auto) (24-44) % Moody % (Auto) (2-6) % Eos % (Auto) (2-4) % Baso % (Auto) (0-1) % Sodium 133 L (140-148) mmol/L Potassium 4.0 (3.6-5.2) mmol/L Chloride 100 (100-108) mmol/L Carbon Dioxide 24 (21-32) mmol/L Anion Gap 13.0 (5.0-14.0) mmol/L BUN 20 H (7-18) mg/dL Creatinine 1.1 (0.8-1.3) mg/dL Est Cr Clr Drug Dosing 51.54 mL/min Estimated GFR (MDRD) > 60 (>60) Glucose 110 H (74-106) mg/dL Lactic Acid 1.5 (0.4-2.0) mmol/L Calcium 7.8 L (8.5-10.1) mg/dL Phosphorus (2.5-4.9) mg/dL Magnesium (1.8-2.4) mg/dL Total Bilirubin 0.8 (0.2-1.0) mg/dL AST 70 H (15-37) U/L ALT 64 (12-78) U/L Alkaline Phosphatase 72 (46-116) U/L Troponin I (0.000-0.056) ng/mL C-Reactive Protein 10.89 H (0.0-0.3) mg/dL Total Protein 6.6 (6.4-8.2) g/dL Albumin 2.8 L (3.4-5.0) g/dL Globulin 3.8 H (2.3-3.5) g/dL Albumin/Globulin Ratio 0.7 L (1.2-2.2) Lipase (73-393) U/L Procalcitonin 3.55 H* ng/mL Urine Color (YELLOW) Urine Appearance (CLEAR) Urine pH (5.0-8.0) Ur Specific [place] (1.008-1.030) Urine Protein (NEGATIVE) mg/dL Urine Glucose (UA) (NEGATIVE) mg/dL Urine Ketones (NEGATIVE) mg/dL Urine Occult Blood (NEGATIVE) Urine Nitrite (NEGATIVE) Urine Bilirubin (NEGATIVE) Urine Urobilinogen (0.2-1.0) EU/dL Ur Leukocyte Esterase (NEGATIVE) Urine RBC (0-5) Urine WBC (0-5) Ur Epithelial Cells Amorphous Sediment Urine Bacteria Urine Mucus 07/08/20 07/09/20 07/09/20 Range/Units 20:57 05:52 05:52 WBC 3.8 L (4.5-11.0) K/uL RBC 3.66 L (4.30-5.90) M/uL Hgb 10.6 L (12.0-15.0) g/dL Hct 32.0 L (40.0-54.0) % MCV 87 (80-98) fL MCH 29 (27-31) pg MCHC 33 (32-36) % Plt Count 52 L (150-400) K/uL Neut % (Auto) (36-66) % Lymph % (Auto) (24-44) % Moody % (Auto) (2-6) % Eos % (Auto) (2-4) % Baso % (Auto) (0-1) % Sodium 133 L (140-148) mmol/L Potassium 4.3 (3.6-5.2) mmol/L Chloride 102 (100-108) mmol/L Carbon Dioxide 25 (21-32) mmol/L Anion Gap 10.3 (5.0-14.0) mmol/L BUN 19 H (7-18) mg/dL Creatinine 1.0 (0.8-1.3) mg/dL Est Cr Clr Drug Dosing 58.58 mL/min Estimated GFR (MDRD) > 60 (>60) Glucose 111 H (74-106) mg/dL Lactic Acid (0.4-2.0) mmol/L Calcium 7.6 L (8.5-10.1) mg/dL Phosphorus (2.5-4.9) mg/dL Magnesium 2.0 (1.8-2.4) mg/dL Total Bilirubin (0.2-1.0) mg/dL AST (15-37) U/L ALT (12-78) U/L Alkaline Phosphatase (46-116) U/L Troponin I (0.000-0.056) ng/mL C-Reactive Protein (0.0-0.3) mg/dL Total Protein (6.4-8.2) g/dL Albumin (3.4-5.0) g/dL Globulin (2.3-3.5) g/dL Albumin/Globulin Ratio (1.2-2.2) Lipase (73-393) U/L Procalcitonin ng/mL Urine Color Yellow (YELLOW) Urine Appearance Slightly cloudy A (CLEAR) Urine pH 5.5 (5.0-8.0) Ur Specific [place] 1.025 (1.008-1.030) Urine Protein 100 H (NEGATIVE) mg/dL Urine Glucose (UA) Negative (NEGATIVE) mg/dL Urine Ketones Negative (NEGATIVE) mg/dL Urine Occult Blood Trace-intact H (NEGATIVE) Urine Nitrite Negative (NEGATIVE) Urine Bilirubin Negative (NEGATIVE) Urine Urobilinogen 0.2 (0.2-1.0) EU/dL Ur Leukocyte Esterase Negative (NEGATIVE) Urine RBC 0-5 (0-5) Urine WBC 0-5 (0-5) Ur Epithelial Cells Rare Amorphous Sediment Not seen Urine Bacteria Moderate Urine Mucus Rare Med Orders - Current: Current Medications Acetaminophen (Tylenol) 650 mg PO Q4H PRN PRN Reason: Pain (Mild 1-3)/fever Last Admin: 07/09/20 07:15 Dose: 650 mg Documented by: Aspirin (Ecotrin) 325 mg PO DAILY [facility] Diltiazem HCl 100 mg/ Sodium (Chloride) 100 mls @ 5 mls/hr IV TITRATE [facility]; Protocol Last Admin: 07/09/20 00:03 Dose: 5 mg/hr, 5 mls/hr Documented by: Doxycycline Hyclate 100 mg/ (Sodium Chloride) 100 mls @ 100 mls/hr IV Q12H [facility] Last Admin: 07/09/20 01:04 Dose: 100 mls/hr Documented by: Sodium Chloride (Normal Saline) 1,000 mls @ 50 mls/hr IV ASDIRECTED [facility] Ibuprofen (Motrin) 600 mg PO Q6H PRN PRN Reason: Pain/Fever Lactobacillus Rhamnosus (Culturelle) 1 cap PO BID [facility] Lorazepam (Ativan) 0.5 mg IVPUSH Q4H PRN PRN Reason: Nausea/Vomiting Magnesium Hydroxide (Milk Of Magnesia) 30 ml PO Q12H PRN PRN Reason: Constipation Melatonin (Melatonin) 9 mg PO BEDTIME PRN PRN Reason: Sleep Last Admin: 07/09/20 01:04 Dose: 9 mg Documented by: Ondansetron HCl (Zofran) 4 mg IV Q6H PRN PRN Reason: Nausea/Vomiting Ondansetron HCl (Zofran Odt) 4 mg PO Q6H PRN PRN Reason: Nausea able to take PO Senna/Docusate Sodium (Senna Plus) 1 tab PO BID PRN PRN Reason: Constipation Sodium Chloride (Saline Flush) 10 ml FLUSH ASDIRECTED PRN PRN Reason: Keep Vein Open Last Admin: 07/08/20 22:22 Dose: 10 ml Documented by: Discontinued Medications Diltiazem HCl (Diltiazem) 20 mg IVPUSH ONETIME ONE Stop: 07/08/20 20:46 Last Admin: 07/08/20 20:51 Dose: 20 mg Documented by: Lactated Ringer's (Ringers, Lactated) 1,000 mls @ 999 mls/hr IV ASDIRECTED [facility] Last Admin: 07/08/20 20:51 Dose: 999 mls/hr Documented by: Ceftriaxone Sodium 1 gm/ (Sodium Chloride) 50 mls @ 100 mls/hr IV STAT ONE Stop: 07/08/20 21:10 Last Admin: 07/08/20 20:55 Dose: 100 mls/hr Documented by: Sodium Chloride (Normal Saline) 100 mls @ 3 mls/sec IV ASDIRECTED [facility] Last Admin: 07/08/20 22:23 Dose: 3 mls/sec Documented by: Lactated Ringer's (Ringers, Lactated) 1,000 mls @ 999 mls/hr IV ASDIRECTED [facility] Last Admin: 07/08/20 22:31 Dose: 999 mls/hr Documented by: Sodium Chloride (Normal Saline) 1,000 mls @ 100 mls/hr IV ASDIRECTED [facility] Last Admin: 07/09/20 00:05 Dose: 100 mls/hr Documented by: Iopamidol (Isovue-370 (76%)) 100 ml IV . DIRECTED [facility] Last Admin: 07/08/20 22:23 Dose: 100 ml Documented by: - Exam Quality Assessment: No: Supplemental Oxygen General: Alert, Oriented, Cooperative, No Acute Distress Lungs: Normal Respiratory Effort. No: Wheezing Cardiovascular: Regular Rate, Irregular Rhythm GI/Abdominal Exam: Soft, No Distention Extremities: No Pedal Edema. No: Increased Warmth Skin: Warm, Dry Psy/Mental Status: Alert, Normal Affect Sepsis Event Note - Evaluation Sepsis Screening Result: No Definite Risk - Focused Exam Vital Signs: Vital Signs Temp Temp Pulse Resp BP BP Pulse Ox 07/09/20 05:47 36.6 C 20 120/73 96 07/09/20 04:00 18 108/59 L 95 07/09/20 02:00 37.0 C 20 112/52 L 94 L 07/09/20 01:05 37.7 C 07/09/20 00:01 37.6 C 23 H 128/65 95 07/08/20 23:00 95 20 114/84 95 07/08/20 22:39 94 17 127/71 95 07/08/20 21:53 98 22 H 135/68 97 - Problem List & Annotations (1) Anaplasmosis SNOMED Code(s): 551168546 Code(s): A77.49 - OTHER EHRLICHIOSIS Status: Acute Current Visit: Yes (2) Atrial fibrillation with rapid ventricular response SNOMED Code(s): 801359171740288 Code(s): I48.91 - UNSPECIFIED ATRIAL FIBRILLATION Status: Acute Current Visit: Yes (3) Babesiosis SNOMED Code(s): 95384811 Code(s): B60.0 - BABESIOSIS Status: Acute Current Visit: Yes - Problem List Review Problem List Initiated/Reviewed/Updated: Yes - My Orders Last 24 Hours: My Active Orders 07/08/20 23:32 Resuscitation Status Routine 07/09/20 00:00 Doxycycline [Vibramycin] 100 mg Sodium Chloride 0.9% [Normal Saline] 100 ml IV Q12H 07/09/20 00:01 Acetaminophen [Tylenol] 650 mg PO Q4H PRN Docusate Sodium/Sennosides [Senna Plus] 1 tab PO BID PRN Ibuprofen [Motrin] 600 mg PO Q6H PRN LORazepam [Ativan] 0.5 mg IVPUSH Q4H PRN Magnesium Hydroxide [Milk of Magnesia] 30 ml PO Q12H PRN Melatonin 9 mg PO BEDTIME PRN Ondansetron [Zofran ODT] 4 mg PO Q6H PRN Ondansetron [Zofran] 4 mg IV Q6H PRN 07/09/20 00:01 Patient Status [ADT] Routine Cardiac Monitoring [RC] CONTINUOUS Intake and Output [RC] QSHIFT Notify Provider Vital Signs [RC] ASDIRECTED Oxygen Therapy [RC] PRN Up ad Lindsay [RC] ASDIRECTED VTE/DVT Education [RC] Per Unit Routine Vital Signs [RC] Q2H VTE Pharmacological Contraindications [AST] Routine 07/09/20 03:40 HUMAN GRANULOCYTIC KHOI-HGE AM LYME, TOTAL AB TEST/REFLEX AM 07/09/20 Breakfast Regular Diet [DIET] 07/09/20 09:00 Aspirin [Ecotrin] 325 mg PO DAILY Lactobacillus Rhamnosus GG [Culturelle] 1 cap PO BID 07/09/20 09:30 Sodium Chloride 0.9% [Normal Saline] 1,000 ml IV ASDIRECTED 07/10/20 05:00 BASIC METABOLIC PANEL,BMP [CHEM] Timed CBC W/O DIFF,HEMOGRAM [HEME] Timed (1) - Plan Plan:: ASSESSMENT AND PLAN - 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 Tolerating antibiotics so far. 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 Peripheral smear prompted by anemia noted along with the laboratory findings for anaplasmosis and did raise concern for babesiosis. -Azithromycin and atovaquone x10 days Atrial fibrillation with rapid ventricular response-good rate control but still in atrial fibrillation. I would anticipate conversion in the near future. -Continue diltiazem infusion -Cardiac monitoring -Continue aspirin Maintenance issues - - DVT prophylaxis - patient will be ambulatory - GI prophylaxis -not indicated - Nutrition -regular diet Disposition -I would anticipate discharge home after the hospital stay Primary care physician - Cody Ryan M.D.
[2020-07-09] MEDS: Aspirin 325 MG Tab.EC PO SCH (09:38)
[2020-07-09] MEDS: Lactobacillus Rhamnosus GG (Probiotic) Cap PO SCH ×2 (09:38→20:58)
--- NOTE | 2020-07-09 10:09 | CR ---
CHEST: 2 view CLINICAL HISTORY:A. Fib COMPARISON:None FINDINGS: The heart size, pulmonary vascularity and hilar structures are normal. No infiltrate effusion or pneumothorax is seen. IMPRESSION: No acute cardiopulmonary process.
[2020-07-09] MEDS: Sodium Chloride 0.9% 1,000 ML IV SCH (10:23)
[2020-07-09] MEDS ORDERED: Azithromycin 250 MG Tab PO ONE (10:30)
[2020-07-09] MEDS: Atovaquone 750 MG/5 ML Susp 5 ML Packet PO SCH ×2 (13:01→18:09)
[2020-07-10] MEDS: Doxycycline 100 MG in Sodium Chloride 0.9% 100 ML IV SCH ×2 (00:39→12:07)
[2020-07-10] MEDS: Ibuprofen 600 MG Tab PO PRN ×4 (00:40→20:14)
[2020-07-10] MEDS: Diltiazem 100 MG in Sodium Chloride 0.9% 100 ML IV SCH ×4 (00:45→22:04)
[2020-07-10] MEDS: Sodium Chloride 0.9% 1,000 ML IV SCH (08:28)
[2020-07-10] MEDS: Lactobacillus Rhamnosus GG (Probiotic) Cap PO SCH ×2 (08:33→20:14)
[2020-07-10] MEDS: Aspirin 325 MG Tab.EC PO SCH (08:33)
[2020-07-10] MEDS: Azithromycin 250 MG Tab PO SCH (08:34)
[2020-07-10] MEDS: Atovaquone 750 MG/5 ML Susp 5 ML Packet PO SCH ×2 (08:46→16:24)
--- NOTE | 2020-07-10 08:58 | PCM.PN ---
- General Info Date of Service: 07/10/20 Subjective Update: No acute events overnight but patient did not sleep well. He had some difficulty with cough and did require supplemental oxygen. He continues to have episodes of diaphoresis and a low-grade fever. Laboratory studies are stable compared to yesterday. He feels very fatigued and continues to have headache and myalgias. Still in atrial fibrillation but rate control is slowly improving. - Review of Systems General: Reports: Fever, Weakness Pulmonary: Reports: Shortness of Breath, Cough - Patient Data Vitals - Most Recent: Last Vital Signs Temp 35.5 C L 07/10/20 08:32 Pulse 84 07/10/20 08:00 Resp 26 H 07/10/20 08:00 BP 111/66 07/10/20 08:00 Pulse Ox 95 07/10/20 08:00 Weight - Most Recent: 70.3 kg I&O - Last 24 Hours: Intake & Output 07/09/20 07/10/20 07/10/20 22:59 06:59 14:59 Intake Total 1590 1007 Output Total 200 250 Balance 1390 757 Lab Results Last 24 Hours: Laboratory Results - last 24 hr 07/10/20 07/10/20 Range/Units 04:10 04:10 WBC 4.4 L (4.5-11.0) K/uL RBC 3.58 L (4.30-5.90) M/uL Hgb 10.3 L (12.0-15.0) g/dL Hct 30.9 L (40.0-54.0) % MCV 86 (80-98) fL MCH 29 (27-31) pg MCHC 33 (32-36) % Plt Count 56 L (150-400) K/uL Sodium 135 L (140-148) mmol/L Potassium 4.0 (3.6-5.2) mmol/L Chloride 104 (100-108) mmol/L Carbon Dioxide 25 (21-32) mmol/L Anion Gap 10.0 (5.0-14.0) mmol/L BUN 18 (7-18) mg/dL Creatinine 1.0 (0.8-1.3) mg/dL Est Cr Clr Drug Dosing 58.58 mL/min Estimated GFR (MDRD) > 60 (>60) Glucose 121 H (74-106) mg/dL Calcium 7.5 L (8.5-10.1) mg/dL Víctor Results Last 24 Hours: Microbiology 07/08/20 20:45 Aerobic Blood Culture - Preliminary Blood - Venous - Iv Start NO GROWTH AFTER 1 DAY Anaerobic Blood Culture - Preliminary NO GROWTH AFTER 1 DAY 07/08/20 20:40 Aerobic Blood Culture - Preliminary Blood - Arm, Right NO GROWTH AFTER 1 DAY Anaerobic Blood Culture - Preliminary NO GROWTH AFTER 1 DAY Med Orders - Current: Current Medications Acetaminophen (Tylenol) 650 mg PO Q4H PRN PRN Reason: Pain (Mild 1-3)/fever Last Admin: 07/09/20 20:58 Dose: 650 mg Documented by: Aspirin (Ecotrin) 325 mg PO DAILY [facility] Last Admin: 07/10/20 08:33 Dose: 325 mg Documented by: Atovaquone (Mepron 750 Mg/5 Ml Susp) 750 mg PO BIDMEALS [facility] Last Admin: 07/10/20 08:46 Dose: 750 mg Documented by: Azithromycin (Zithromax) 250 mg PO DAILY [facility] Stop: 07/18/20 09:01 Last Admin: 07/10/20 08:34 Dose: 250 mg Documented by: Diltiazem HCl 100 mg/ Sodium (Chloride) 100 mls @ 5 mls/hr IV TITRATE [facility]; Protocol Last Admin: 07/10/20 00:45 Dose: 7.5 mg/hr, 7.5 mls/hr Documented by: Doxycycline Hyclate 100 mg/ (Sodium Chloride) 100 mls @ 100 mls/hr IV Q12H [facility] Last Admin: 07/10/20 00:39 Dose: 100 mls/hr Documented by: Sodium Chloride (Normal Saline) 1,000 mls @ 50 mls/hr IV ASDIRECTED [facility] Last Admin: 07/10/20 08:28 Dose: 50 mls/hr Documented by: Ibuprofen (Motrin) 600 mg PO Q6H PRN PRN Reason: Pain/Fever Last Admin: 07/10/20 08:32 Dose: 600 mg Documented by: Lactobacillus Rhamnosus (Culturelle) 1 cap PO BID [facility] Last Admin: 07/10/20 08:33 Dose: 1 cap Documented by: Lorazepam (Ativan) 0.5 mg IVPUSH Q4H PRN PRN Reason: Nausea/Vomiting Last Admin: 07/09/20 20:55 Dose: 0.5 mg Documented by: Magnesium Hydroxide (Milk Of Magnesia) 30 ml PO Q12H PRN PRN Reason: Constipation Melatonin (Melatonin) 9 mg PO BEDTIME PRN PRN Reason: Sleep Last Admin: 07/09/20 01:04 Dose: 9 mg Documented by: Ondansetron HCl (Zofran) 4 mg IV Q6H PRN PRN Reason: Nausea/Vomiting Ondansetron HCl (Zofran Odt) 4 mg PO Q6H PRN PRN Reason: Nausea able to take PO Senna/Docusate Sodium (Senna Plus) 1 tab PO BID PRN PRN Reason: Constipation Sodium Chloride (Saline Flush) 10 ml FLUSH ASDIRECTED PRN PRN Reason: Keep Vein Open Last Admin: 07/08/20 22:22 Dose: 10 ml Documented by: Discontinued Medications Azithromycin (Zithromax) 500 mg PO ONETIME ONE Stop: 07/09/20 10:31 Last Admin: 07/09/20 11:25 Dose: 500 mg Documented by: Diltiazem HCl (Diltiazem) 20 mg IVPUSH ONETIME ONE Stop: 07/08/20 20:46 Last Admin: 07/08/20 20:51 Dose: 20 mg Documented by: Lactated Ringer's (Ringers, Lactated) 1,000 mls @ 999 mls/hr IV ASDIRECTED [facility] Last Admin: 07/08/20 20:51 Dose: 999 mls/hr Documented by: Ceftriaxone Sodium 1 gm/ (Sodium Chloride) 50 mls @ 100 mls/hr IV STAT ONE Stop: 07/08/20 21:10 Last Admin: 07/08/20 20:55 Dose: 100 mls/hr Documented by: Sodium Chloride (Normal Saline) 100 mls @ 3 mls/sec IV ASDIRECTED [facility] Last Admin: 07/08/20 22:23 Dose: 3 mls/sec Documented by: Lactated Ringer's (Ringers, Lactated) 1,000 mls @ 999 mls/hr IV ASDIRECTED [facility] Last Admin: 07/08/20 22:31 Dose: 999 mls/hr Documented by: Sodium Chloride (Normal Saline) 1,000 mls @ 100 mls/hr IV ASDIRECTED [facility] Last Admin: 07/09/20 00:05 Dose: 100 mls/hr Documented by: Iopamidol (Isovue-370 (76%)) 100 ml IV . DIRECTED [facility] Last Admin: 07/08/20 22:23 Dose: 100 ml Documented by: - Exam Quality Assessment: No: Supplemental Oxygen General: Alert, Oriented, Cooperative, No Acute Distress Lungs: Normal Respiratory Effort, Crackles (both bases and right midlung ). No: Wheezing Cardiovascular: Irregular Rhythm, Tachycardia GI/Abdominal Exam: Soft, No Distention Extremities: No Pedal Edema. No: Increased Warmth Skin: Warm, Dry Psy/Mental Status: Alert, Normal Affect Sepsis Event Note - Evaluation Sepsis Screening Result: No Definite Risk - Focused Exam Vital Signs: Vital Signs Temp Temp Pulse Resp BP Pulse Ox Pulse Ox 07/10/20 08:32 35.5 C L 07/10/20 08:00 35.5 C L 84 26 H 111/66 95 07/10/20 06:24 95 07/10/20 06:00 74 20 111/67 94 L 07/10/20 04:00 35.9 C L 73 20 94/58 L 96 07/10/20 02:00 82 19 92/58 L 94 L 07/10/20 00:00 78 22 H 102/59 L 94 L 07/09/20 22:00 86 20 103/56 L 92 L - Problem List & Annotations (1) Anaplasmosis SNOMED Code(s): 438651627 Code(s): A77.49 - OTHER EHRLICHIOSIS Status: Acute Current Visit: Yes (2) Atrial fibrillation with rapid ventricular response SNOMED Code(s): 624448826244278 Code(s): I48.91 - UNSPECIFIED ATRIAL FIBRILLATION Status: Acute Current Visit: Yes (3) Babesiosis SNOMED Code(s): 69357464 Code(s): B60.0 - BABESIOSIS Status: Acute Current Visit: Yes - Problem List Review Problem List Initiated/Reviewed/Updated: Yes - My Orders Last 24 Hours: My Active Orders 07/09/20 Breakfast Regular Diet [DIET] 07/09/20 09:00 Aspirin [Ecotrin] 325 mg PO DAILY Lactobacillus Rhamnosus GG [Culturelle] 1 cap PO BID 07/09/20 09:30 Sodium Chloride 0.9% [Normal Saline] 1,000 ml IV ASDIRECTED 07/09/20 12:00 Atovaquone [Mepron 750 MG/5 ML Susp] 750 mg PO BIDMEALS 07/10/20 08:54 CXR [Chest 2V] [CR] Routine 07/10/20 08:56 CORONAVIRUS COVID-19, CAROLINE Routine 07/10/20 08:57 Admission Status [Patient Status] [ADT] Routine 07/10/20 09:00 Azithromycin [Zithromax] 250 mg PO DAILY 07/10/20 09:30 Sodium Chloride 0.9% [Normal Saline] 1,000 ml IV ASDIRECTED 07/11/20 05:00 CBC W/O DIFF,HEMOGRAM [HEME] Timed (1) COMPREHENSIVE METABOLIC PN,CMP [CHEM] Timed - Plan Plan:: ASSESSMENT AND PLAN - 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 Tolerating antibiotics so far. Fever curve improving. 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 Hemoglobin stable. I suspect the ongoing episodes of diaphoresis are related to this infection. -Azithromycin and atovaquone x10 days Right lower lobe pneumonia-noted on chest x-ray this morning after the patient experienced difficulty with cough and hypoxia overnight. I suspect this was present on admission but has blossomed now that he has been hydrated. -Ceftriaxone in addition to antibiotics as outlined above Atrial fibrillation with rapid ventricular response-rate control has been acceptable but he is still in atrial fibrillation. Electrolytes are acceptable. I would anticipate return to sinus rhythm once his infections are adequately treated. -Continue diltiazem infusion, dose increased slightly today -Cardiac monitoring -Continue aspirin Maintenance issues - - DVT prophylaxis - patient will be ambulatory - GI prophylaxis -not indicated - Nutrition -regular diet Admission status-patient was initially admitted to observation but with multiple different infections requiring IV antibiotics and persistent atrial fibrillation that still necessitates an IV infusion he will be transitioned to inpatient status at this time. Disposition -I would anticipate discharge home after the hospital stay Primary care physician - Cody Ryan M.D.
[2020-07-10] MEDS: Benzocaine/Cetylpyridinium/Menthol Lozenge MUCMEM PRN (09:27)
[2020-07-10] MEDS: guaiFENesin/Dextromethorphan 100-10 MG/5 ML Soln 10 ML Cup PO PRN ×3 (09:27→20:14)
[2020-07-10] MEDS ORDERED: Sodium Chloride 0.9% 1,000 ML IV SCH (09:30)
[2020-07-10] MEDS: cefTRIAXone 2 GM in Sodium Chloride 0.9% 50 ML IV SCH (13:17)
--- NOTE | 2020-07-10 14:20 | CR ---
CHEST: 2 view CLINICAL HISTORY:Cough, hypoxia COMPARISON:07/08/2020 FINDINGS: Heart size and pulmonary vascularity are normal. There is been interval development of diffuse bilateral pulmonary infiltrates not present on the eighth 11/15/2020 study. There are small bibasal effusions. There are atherosclerotic changes in the aorta.. Impression: Interval development of diffuse bilateral pulmonary infiltrates with small pleural effusions. This is most suggestive of pneumonia. CHF is felt less likely
[2020-07-11] MEDS: Doxycycline 100 MG in Sodium Chloride 0.9% 100 ML IV SCH (00:17)
[2020-07-11] MEDS: guaiFENesin/Dextromethorphan 100-10 MG/5 ML Soln 10 ML Cup PO PRN ×5 (01:08→22:07)
[2020-07-11] MEDS: Acetaminophen 325 MG Tab PO PRN ×2 (01:51→16:33)
[2020-07-11] MEDS: Albuterol 0.083% 2.5 MG/3 ML Neb Soln NEB PRN ×2 (03:03→08:12)
[2020-07-11] MEDS: Diltiazem 100 MG in Sodium Chloride 0.9% 100 ML IV SCH (08:08)
[2020-07-11] MEDS: Azithromycin 250 MG Tab PO SCH (08:13)
[2020-07-11] MEDS: Aspirin 325 MG Tab.EC PO SCH (08:13)
[2020-07-11] MEDS: Atovaquone 750 MG/5 ML Susp 5 ML Packet PO SCH ×2 (08:13→17:04)
[2020-07-11] MEDS: Lactobacillus Rhamnosus GG (Probiotic) Cap PO SCH ×2 (08:13→21:08)
--- NOTE | 2020-07-11 09:31 | PCM.PN ---
- General Info Date of Service: 07/11/20 Subjective Update: Overnight the patient had difficulty with increased shortness of breath and increased supplemental oxygen requirement. He is off supplemental oxygen this morning after needing 3 L/min overnight. Cough seems a little bit better. He does not feel short of breath this morning. No episodes of diaphoresis overnight. No significant fevers. Myalgias are better. Headache has resolved. Laboratory studies are stable. He is still in atrial fibrillation with b orderline rate control despite increases in the diltiazem. Functional Status: Reports: Pain Controlled, Tolerating Diet - Review of Systems General: Reports: Weakness. Denies: Fever Pulmonary: Reports: Cough - Patient Data Vitals - Most Recent: Last Vital Signs Temp 36.5 C 07/11/20 08:00 Pulse 89 07/11/20 08:23 Resp 18 07/11/20 08:00 BP 113/65 07/11/20 08:00 Pulse Ox 93 L 07/11/20 08:23 Weight - Most Recent: 70.3 kg I&O - Last 24 Hours: Intake & Output 07/10/20 07/11/20 07/11/20 22:59 06:59 14:59 Intake Total 1300 1750 Output Total 200 200 Balance 1100 1550 Lab Results Last 24 Hours: Laboratory Results - last 24 hr 07/10/20 07/11/20 07/11/20 Range/Units 11:20 05:30 05:30 WBC 5.4 (4.5-11.0) K/uL RBC 3.78 L (4.30-5.90) M/uL Hgb 10.9 L (12.0-15.0) g/dL Hct 32.5 L (40.0-54.0) % MCV 86 (80-98) fL MCH 29 (27-31) pg MCHC 34 (32-36) % Plt Count 60 L (150-400) K/uL Sodium 137 L (140-148) mmol/L Potassium 3.8 (3.6-5.2) mmol/L Chloride 104 (100-108) mmol/L Carbon Dioxide 23 (21-32) mmol/L Anion Gap 13.8 (5.0-14.0) mmol/L BUN 19 H (7-18) mg/dL Creatinine 1.0 (0.8-1.3) mg/dL Est Cr Clr Drug Dosing 58.58 mL/min Estimated GFR (MDRD) > 60 (>60) Glucose 132 H (74-106) mg/dL Calcium 7.7 L (8.5-10.1) mg/dL Total Bilirubin 0.5 (0.2-1.0) mg/dL AST 104 H (15-37) U/L ALT 87 H (12-78) U/L Alkaline Phosphatase 69 (46-116) U/L Total Protein 5.9 L (6.4-8.2) g/dL Albumin 2.1 L (3.4-5.0) g/dL Globulin 3.8 H (2.3-3.5) g/dL Albumin/Globulin Ratio 0.6 L (1.2-2.2) SARS Virus RNA (PCR) Negative (NEGATIVE) Víctor Results Last 24 Hours: Microbiology 07/08/20 20:45 Aerobic Blood Culture - Preliminary Blood - Venous - Iv Start NO GROWTH AFTER 2 DAYS Anaerobic Blood Culture - Preliminary NO GROWTH AFTER 2 DAYS 07/08/20 20:40 Aerobic Blood Culture - Preliminary Blood - Arm, Right NO GROWTH AFTER 2 DAYS Anaerobic Blood Culture - Preliminary NO GROWTH AFTER 2 DAYS Med Orders - Current: Current Medications Acetaminophen (Tylenol) 650 mg PO Q4H PRN PRN Reason: Pain (Mild 1-3)/fever Last Admin: 07/11/20 01:51 Dose: 650 mg Documented by: Albuterol (Proventil Neb Soln) 2.5 mg NEB Q4H PRN PRN Reason: Other Last Admin: 07/11/20 08:12 Dose: 2.5 mg Documented by: Aspirin (Ecotrin) 325 mg PO DAILY [facility] Last Admin: 07/11/20 08:13 Dose: 325 mg Documented by: Atovaquone (Mepron 750 Mg/5 Ml Susp) 750 mg PO BIDMEALS [facility] Last Admin: 07/11/20 08:13 Dose: 750 mg Documented by: Azithromycin (Zithromax) 250 mg PO DAILY [facility] Stop: 07/18/20 09:01 Last Admin: 07/11/20 08:13 Dose: 250 mg Documented by: Benzocaine/Menthol (Cepacol Sore Throat) 1 lozenge MUCMEM Q2H PRN PRN Reason: Sore Throat Last Admin: 07/10/20 09:27 Dose: 1 pkg Documented by: Guaifenesin/Dextromethorphan (Robitussin Dm) 10 ml PO Q4H PRN PRN Reason: Cough Last Admin: 07/11/20 08:10 Dose: 10 ml Documented by: Diltiazem HCl 100 mg/ Sodium (Chloride) 100 mls @ 5 mls/hr IV TITRATE [facility]; Protocol Last Admin: 07/11/20 08:08 Dose: 10 mg/hr, 10 mls/hr Documented by: Doxycycline Hyclate 100 mg/ (Sodium Chloride) 100 mls @ 100 mls/hr IV Q12H [facility] Last Admin: 07/11/20 00:17 Dose: 100 mls/hr Documented by: Sodium Chloride (Normal Saline) 1,000 mls @ 25 mls/hr IV ASDIRECTED [facility] Ceftriaxone Sodium 2 gm/ (Sodium Chloride) 50 mls @ 100 mls/hr IV Q24H [facility] Last Admin: 07/10/20 13:17 Dose: 100 mls/hr Documented by: Ibuprofen (Motrin) 600 mg PO Q6H PRN PRN Reason: Pain/Fever Last Admin: 07/10/20 20:14 Dose: 600 mg Documented by: Lactobacillus Rhamnosus (Culturelle) 1 cap PO BID [facility] Last Admin: 07/11/20 08:13 Dose: 1 cap Documented by: Lorazepam (Ativan) 0.5 mg IVPUSH Q4H PRN PRN Reason: Nausea/Vomiting Last Admin: 07/09/20 20:55 Dose: 0.5 mg Documented by: Magnesium Hydroxide (Milk Of Magnesia) 30 ml PO Q12H PRN PRN Reason: Constipation Melatonin (Melatonin) 9 mg PO BEDTIME PRN PRN Reason: Sleep Last Admin: 07/09/20 01:04 Dose: 9 mg Documented by: Ondansetron HCl (Zofran) 4 mg IV Q6H PRN PRN Reason: Nausea/Vomiting Ondansetron HCl (Zofran Odt) 4 mg PO Q6H PRN PRN Reason: Nausea able to take PO Senna/Docusate Sodium (Senna Plus) 1 tab PO BID PRN PRN Reason: Constipation Sodium Chloride (Saline Flush) 10 ml FLUSH ASDIRECTED PRN PRN Reason: Keep Vein Open Last Admin: 07/08/20 22:22 Dose: 10 ml Documented by: Discontinued Medications Azithromycin (Zithromax) 500 mg PO ONETIME ONE Stop: 07/09/20 10:31 Last Admin: 07/09/20 11:25 Dose: 500 mg Documented by: Diltiazem HCl (Diltiazem) 20 mg IVPUSH ONETIME ONE Stop: 07/08/20 20:46 Last Admin: 07/08/20 20:51 Dose: 20 mg Documented by: Lactated Ringer's (Ringers, Lactated) 1,000 mls @ 999 mls/hr IV ASDIRECTED [facility] Last Admin: 07/08/20 20:51 Dose: 999 mls/hr Documented by: Ceftriaxone Sodium 1 gm/ (Sodium Chloride) 50 mls @ 100 mls/hr IV STAT ONE Stop: 07/08/20 21:10 Last Admin: 07/08/20 20:55 Dose: 100 mls/hr Documented by: Sodium Chloride (Normal Saline) 100 mls @ 3 mls/sec IV ASDIRECTED [facility] Last Admin: 07/08/20 22:23 Dose: 3 mls/sec Documented by: Lactated Ringer's (Ringers, Lactated) 1,000 mls @ 999 mls/hr IV ASDIRECTED [facility] Last Admin: 07/08/20 22:31 Dose: 999 mls/hr Documented by: Sodium Chloride (Normal Saline) 1,000 mls @ 100 mls/hr IV ASDIRECTED [facility] Last Admin: 07/09/20 00:05 Dose: 100 mls/hr Documented by: Sodium Chloride (Normal Saline) 1,000 mls @ 50 mls/hr IV ASDIRECTED [facility] Last Admin: 07/10/20 08:28 Dose: 50 mls/hr Documented by: Iopamidol (Isovue-370 (76%)) 100 ml IV . DIRECTED [facility] Last Admin: 07/08/20 22:23 Dose: 100 ml Documented by: - Exam Quality Assessment: No: Supplemental Oxygen General: Alert, Oriented, Cooperative, No Acute Distress Lungs: Normal Respiratory Effort, Crackles (rare left lung base) Cardiovascular: Regular Rate, Irregular Rhythm GI/Abdominal Exam: Soft, No Distention Extremities: No Pedal Edema. No: Increased Warmth Skin: Warm, Dry Psy/Mental Status: Alert, Normal Affect Sepsis Event Note - Evaluation Sepsis Screening Result: No Definite Risk - Focused Exam Vital Signs: Vital Signs Temp Pulse Resp BP Pulse Ox Pulse Ox 07/11/20 08:23 89 93 L 07/11/20 08:00 36.5 C 85 18 113/65 93 L 07/11/20 06:00 36.1 C 81 22 H 116/67 93 L 07/11/20 05:00 92 24 H 118/69 91 L 07/11/20 04:00 36.6 C 88 26 H 110/64 94 L 07/11/20 03:00 36.1 C 82 28 H 106/62 93 L 07/11/20 02:00 78 21 H 118/67 90 L 07/11/20 01:05 92 L 07/11/20 01:00 37.1 C 78 19 108/61 07/11/20 00:00 82 19 101/62 90 L 07/10/20 23:00 77 18 119/63 92 L 07/10/20 22:00 82 18 117/68 91 L - Problem List & Annotations (1) Anaplasmosis SNOMED Code(s): 018594769 Code(s): A77.49 - OTHER EHRLICHIOSIS Status: Acute Current Visit: Yes (2) Atrial fibrillation with rapid ventricular response SNOMED Code(s): 022609281432949 Code(s): I48.91 - UNSPECIFIED ATRIAL FIBRILLATION Status: Acute Current Visit: Yes (3) Babesiosis SNOMED Code(s): 46891465 Code(s): B60.0 - BABESIOSIS Status: Acute Current Visit: Yes (4) Community acquired pneumonia of right lower lobe of lung SNOMED Code(s): 685336103 Code(s): J18.9 - PNEUMONIA, UNSPECIFIED ORGANISM Status: Acute Current Visit: Yes (5) Acute respiratory failure with hypoxia SNOMED Code(s): 72021779, 624377259 Code(s): J96.01 - ACUTE RESPIRATORY FAILURE WITH HYPOXIA Status: Acute Current Visit: Yes - Problem List Review Problem List Initiated/Reviewed/Updated: Yes - My Orders Last 24 Hours: My Active Orders 07/10/20 08:57 Admission Status [Patient Status] [ADT] Routine 07/10/20 09:00 Azithromycin [Zithromax] 250 mg PO DAILY Benzocaine/Cetylpyrd/Menthol [Cepacol Sore Throat] 1 lozenge MUCMEM Q2H PRN Dextromethorphan/guaiFENesin [Robitussin DM] 10 ml PO Q4H PRN 07/10/20 09:30 Sodium Chloride 0.9% [Normal Saline] 1,000 ml IV ASDIRECTED 07/10/20 12:30 cefTRIAXone [Rocephin] 2 gm Sodium Chloride 0.9% [Normal Saline] 50 ml IV Q24H 07/11/20 02:50 Albuterol [Proventil Neb Soln] 2.5 mg NEB Q4H PRN 07/11/20 02:51 RT Aerosol Therapy [RC] ASDIRECTED 07/11/20 09:30 Amiodarone 450 MG in D5W @ 1 MG/MIN(250ml) Amiodarone [Cordarone] 450 mg Dextrose 5% in Water 241 ml IV ASDIRECTED 07/11/20 10:00 Amiodarone In Dextrose,Iso-Osm [Nexterone in Dextrose 150 MG/100 ML] 150 mg Premix Bag 1 bag IV ONETIME 07/12/20 05:00 BASIC METABOLIC PANEL,BMP [CHEM] Timed CBC W/O DIFF,HEMOGRAM [HEME] Timed (1) - Plan Plan:: ASSESSMENT AND PLAN - 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 Tolerating antibiotics so far. Fever curve improving. 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 Hemoglobin stable. I suspect the ongoing episodes of diaphoresis are related to this infection and seem to be improving. -Azithromycin and atovaquone x10 days Right lower lobe pneumonia-noted on chest x-ray 07/10 after the patient experienced difficulty with cough and hypoxia overnight. I suspect this was present on admission but has blossomed now that he has been hydrated. Difficulty with hypoxia overnight but seems to be doing better this morning. -Ceftriaxone in addition to antibiotics as outlined above Atrial fibrillation with rapid ventricular response-rate control has been acceptable but he is still in atrial fibrillation. Not responding as well as hoped to the diltiazem so we are going to try amiodarone. -Amiodarone bolus followed by 24-hour infusion -Anticipate 2 weeks of oral amiodarone -Cardiac monitoring -Continue aspirin Maintenance issues - - DVT prophylaxis - patient will be ambulatory - GI prophylaxis -not indicated - Nutrition -regular diet Disposition -I would anticipate discharge home after the hospital stay Jordon Ryan M.D.
[2020-07-11] MEDS: Ibuprofen 600 MG Tab PO PRN ×2 (09:45→16:33)
[2020-07-11] MEDS ORDERED: Amiodarone In Dextrose,Iso-Osm 150 MG in Premix Bag 1 BAG IV ONE ×2 (10:00)
[2020-07-11] MEDS: cefTRIAXone 2 GM in Sodium Chloride 0.9% 50 ML IV SCH (13:16)
[2020-07-11] MEDS ORDERED: Morphine 2 MG/ML SYRINGE IVPUSH PRN (16:42)
[2020-07-11] MEDS: Doxycycline 100 MG Cap PO SCH (21:08)
[2020-07-11] MEDS ORDERED: methylPREDNISolone Sodium Succinate 125 MG/2 ML SDV IVPUSH ONE (22:00)
[2020-07-12] MEDS: Atovaquone 750 MG/5 ML Susp 5 ML Packet PO SCH ×2 (07:47→20:02)
[2020-07-12] MEDS: Lactobacillus Rhamnosus GG (Probiotic) Cap PO SCH ×2 (08:19→21:08)
[2020-07-12] MEDS: Aspirin 325 MG Tab.EC PO SCH (08:19)
[2020-07-12] MEDS: Azithromycin 250 MG Tab PO SCH (08:20)
--- NOTE | 2020-07-12 09:36 | PCM.PN ---
- General Info Date of Service: 07/12/20 Subjective Update: Yesterday afternoon the patient had an acute onset of diffuse arthralgias, weakness. He developed tachycardia and hypoxia. He received a dose of ibuprofen and a dose of morphine and things eventually calm down. Since that time he has felt well. He has not had any recurrence of the diaphoresis, arthralgias or weakness. His vital signs have all been stable and he has converted to a normal sinus rhythm. He has not had any fevers. He is off supplemental oxygen. He has been up and walking around. He feels nearly back to normal. Functional Status: Reports: Pain Controlled, Tolerating Diet - Review of Systems General: Denies: Fever Pulmonary: Reports: Shortness of Breath - Patient Data Vitals - Most Recent: Last Vital Signs Temp 36.4 C 07/12/20 07:00 Pulse 75 07/12/20 08:00 Resp 18 07/12/20 08:00 BP 130/74 07/12/20 08:00 Pulse Ox 94 L 07/12/20 08:00 Weight - Most Recent: 70.3 kg I&O - Last 24 Hours: Intake & Output 07/11/20 07/12/20 07/12/20 22:59 06:59 14:59 Intake Total 1782 Output Total 1100 Balance 682 Lab Results Last 24 Hours: Laboratory Results - last 24 hr 07/12/20 07/12/20 Range/Units 05:00 05:00 WBC 5.1 (4.5-11.0) K/uL RBC 3.85 L (4.30-5.90) M/uL Hgb 10.8 L (12.0-15.0) g/dL Hct 33.0 L (40.0-54.0) % MCV 86 (80-98) fL MCH 28 (27-31) pg MCHC 33 (32-36) % Plt Count 79 L (150-400) K/uL ESR 50 H (0-20) mm/hr Sodium 136 L (140-148) mmol/L Potassium 4.4 (3.6-5.2) mmol/L Chloride 104 (100-108) mmol/L Carbon Dioxide 24 (21-32) mmol/L Anion Gap 12.4 (5.0-14.0) mmol/L BUN 16 (7-18) mg/dL Creatinine 0.9 (0.8-1.3) mg/dL Est Cr Clr Drug Dosing 65.09 mL/min Estimated GFR (MDRD) > 60 (>60) Glucose 140 H (74-106) mg/dL Calcium 7.9 L (8.5-10.1) mg/dL C-Reactive Protein 14.00 H (0.0-0.3) mg/dL Víctor Results Last 24 Hours: Microbiology 07/08/20 20:45 Aerobic Blood Culture - Preliminary Blood - Venous - Iv Start NO GROWTH AFTER 3 DAYS Anaerobic Blood Culture - Preliminary NO GROWTH AFTER 3 DAYS 07/08/20 20:40 Aerobic Blood Culture - Preliminary Blood - Arm, Right NO GROWTH AFTER 3 DAYS Anaerobic Blood Culture - Preliminary NO GROWTH AFTER 3 DAYS Med Orders - Current: Current Medications Acetaminophen (Tylenol) 650 mg PO Q4H PRN PRN Reason: Pain (Mild 1-3)/fever Last Admin: 07/11/20 16:33 Dose: 650 mg Documented by: Albuterol (Proventil Neb Soln) 2.5 mg NEB Q4H PRN PRN Reason: Other Last Admin: 07/11/20 08:12 Dose: 2.5 mg Documented by: Aspirin (Ecotrin) 325 mg PO DAILY [facility] Last Admin: 07/12/20 08:19 Dose: 325 mg Documented by: Atovaquone (Mepron 750 Mg/5 Ml Susp) 750 mg PO BIDMEALS [facility] Last Admin: 07/12/20 07:47 Dose: 750 mg Documented by: Azithromycin (Zithromax) 250 mg PO DAILY [facility] Stop: 07/18/20 09:01 Last Admin: 07/12/20 08:20 Dose: 250 mg Documented by: Benzocaine/Menthol (Cepacol Sore Throat) 1 lozenge MUCMEM Q2H PRN PRN Reason: Sore Throat Last Admin: 07/10/20 09:27 Dose: 1 pkg Documented by: Doxycycline Hyclate (Vibramycin) 100 mg PO Q12H [facility] Last Admin: 07/11/20 21:08 Dose: 100 mg Documented by: Guaifenesin/Dextromethorphan (Robitussin Dm) 10 ml PO Q4H PRN PRN Reason: Cough Last Admin: 07/11/20 22:07 Dose: 10 ml Documented by: Sodium Chloride (Normal Saline) 1,000 mls @ 25 mls/hr IV ASDIRECTED [facility] Ceftriaxone Sodium 2 gm/ (Sodium Chloride) 50 mls @ 100 mls/hr IV Q24H [facility] Last Admin: 07/11/20 13:16 Dose: 100 mls/hr Documented by: Amiodarone HCl 450 mg/ (Dextrose/Water) 250 mls @ 33.333 mls/hr IV ASDIRECTED [facility]; Protocol Last Admin: 07/11/20 10:42 Dose: 1 mg/min, 33.333 mls/hr Documented by: Ibuprofen (Motrin) 600 mg PO Q6H PRN PRN Reason: Pain/Fever Last Admin: 07/11/20 16:33 Dose: 600 mg Documented by: Lactobacillus Rhamnosus (Culturelle) 1 cap PO BID [facility] Last Admin: 07/12/20 08:19 Dose: 1 cap Documented by: Lorazepam (Ativan) 0.5 mg IVPUSH Q4H PRN PRN Reason: Nausea/Vomiting Last Admin: 07/09/20 20:55 Dose: 0.5 mg Documented by: Magnesium Hydroxide (Milk Of Magnesia) 30 ml PO Q12H PRN PRN Reason: Constipation Melatonin (Melatonin) 9 mg PO BEDTIME PRN PRN Reason: Sleep Last Admin: 07/09/20 01:04 Dose: 9 mg Documented by: Morphine Sulfate (Morphine) 2 mg IVPUSH Q2H PRN PRN Reason: pain Last Admin: 07/11/20 16:59 Dose: 2 mg Documented by: Ondansetron HCl (Zofran) 4 mg IV Q6H PRN PRN Reason: Nausea/Vomiting Ondansetron HCl (Zofran Odt) 4 mg PO Q6H PRN PRN Reason: Nausea able to take PO Senna/Docusate Sodium (Senna Plus) 1 tab PO BID PRN PRN Reason: Constipation Sodium Chloride (Saline Flush) 10 ml FLUSH ASDIRECTED PRN PRN Reason: Keep Vein Open Last Admin: 07/08/20 22:22 Dose: 10 ml Documented by: Discontinued Medications Azithromycin (Zithromax) 500 mg PO ONETIME ONE Stop: 07/09/20 10:31 Last Admin: 07/09/20 11:25 Dose: 500 mg Documented by: Diltiazem HCl (Diltiazem) 20 mg IVPUSH ONETIME ONE Stop: 07/08/20 20:46 Last Admin: 07/08/20 20:51 Dose: 20 mg Documented by: Lactated Ringer's (Ringers, Lactated) 1,000 mls @ 999 mls/hr IV ASDIRECTED [facility] Last Admin: 07/08/20 20:51 Dose: 999 mls/hr Documented by: Ceftriaxone Sodium 1 gm/ (Sodium Chloride) 50 mls @ 100 mls/hr IV STAT ONE Stop: 07/08/20 21:10 Last Admin: 07/08/20 20:55 Dose: 100 mls/hr Documented by: Diltiazem HCl 100 mg/ Sodium (Chloride) 100 mls @ 5 mls/hr IV TITRATE [facility]; Protocol Last Admin: 07/11/20 08:08 Dose: 10 mg/hr, 10 mls/hr Documented by: Sodium Chloride (Normal Saline) 100 mls @ 3 mls/sec IV ASDIRECTED [facility] Last Admin: 07/08/20 22:23 Dose: 3 mls/sec Documented by: Lactated Ringer's (Ringers, Lactated) 1,000 mls @ 999 mls/hr IV ASDIRECTED [facility] Last Admin: 07/08/20 22:31 Dose: 999 mls/hr Documented by: Sodium Chloride (Normal Saline) 1,000 mls @ 100 mls/hr IV ASDIRECTED [facility] Last Admin: 07/09/20 00:05 Dose: 100 mls/hr Documented by: Doxycycline Hyclate 100 mg/ (Sodium Chloride) 100 mls @ 100 mls/hr IV Q12H [facility] Last Admin: 07/11/20 00:17 Dose: 100 mls/hr Documented by: Sodium Chloride (Normal Saline) 1,000 mls @ 50 mls/hr IV ASDIRECTED [facility] Last Admin: 07/10/20 08:28 Dose: 50 mls/hr Documented by: Amiodarone HCl/Dextrose 150 mg (/ Premix) 100 mls @ 400 mls/hr IV ONETIME ONE Stop: 07/11/20 10:14 Last Admin: 07/11/20 10:17 Dose: 400 mls/hr Documented by: Iopamidol (Isovue-370 (76%)) 100 ml IV . DIRECTED [facility] Last Admin: 07/08/20 22:23 Dose: 100 ml Documented by: Methylprednisolone Sodium Succinate (Solu-Medrol) 125 mg IVPUSH ONETIME ONE Stop: 07/11/20 22:01 Last Admin: 07/11/20 22:07 Dose: 125 mg Documented by: - Exam Quality Assessment: No: Supplemental Oxygen General: Alert, Oriented, Cooperative, No Acute Distress Lungs: Normal Respiratory Effort, Crackles (rare both bases) Cardiovascular: Regular Rate, Regular Rhythm GI/Abdominal Exam: Soft, No Distention Extremities: No Pedal Edema. No: Increased Warmth Skin: Warm, Dry Psy/Mental Status: Alert, Normal Affect Sepsis Event Note - Evaluation Sepsis Screening Result: No Definite Risk - Focused Exam Vital Signs: Vital Signs Temp Pulse Resp BP Pulse Ox 07/12/20 08:00 75 18 130/74 94 L 07/12/20 07:00 36.4 C 73 18 130/76 93 L 07/12/20 06:00 70 18 133/73 97 07/12/20 05:00 67 18 137/77 96 07/12/20 04:00 68 18 127/78 96 07/12/20 03:00 71 20 139/79 96 07/12/20 02:00 36.2 C 70 18 133/74 95 07/12/20 01:00 80 138/83 95 07/12/20 00:00 35.6 C L 76 20 115/69 95 07/11/20 23:00 81 20 124/70 95 07/11/20 22:00 87 18 137/71 95 - Problem List & Annotations (1) Anaplasmosis SNOMED Code(s): 572515286 Code(s): A77.49 - OTHER EHRLICHIOSIS Status: Acute Current Visit: Yes (2) Atrial fibrillation with rapid ventricular response SNOMED Code(s): 004334244741240 Code(s): I48.91 - UNSPECIFIED ATRIAL FIBRILLATION Status: Acute Current Visit: Yes (3) Babesiosis SNOMED Code(s): 56125263 Code(s): B60.0 - BABESIOSIS Status: Acute Current Visit: Yes (4) Community acquired pneumonia of right lower lobe of lung SNOMED Code(s): 338182873 Code(s): J18.9 - PNEUMONIA, UNSPECIFIED ORGANISM Status: Acute Current Visit: Yes (5) Acute respiratory failure with hypoxia SNOMED Code(s): 55954947, 292555244 Code(s): J96.01 - ACUTE RESPIRATORY FAILURE WITH HYPOXIA Status: Acute Current Visit: Yes - Problem List Review Problem List Initiated/Reviewed/Updated: Yes - My Orders Last 24 Hours: My Active Orders 07/11/20 09:30 Amiodarone [Cordarone] 450 mg Dextrose 5% in Water 241 ml IV ASDIRECTED 07/11/20 16:42 Morphine 2 mg IVPUSH Q2H PRN 07/11/20 22:00 Doxycycline [Vibramycin] 100 mg PO Q12H 07/12/20 09:34 Vital Signs [RC] Q2H 07/12/20 10:00 methylPREDNISolone Sod Succ [Solu-MEDROL] 62.5 mg IVPUSH Q12H 07/12/20 21:00 Amiodarone [Cordarone] 200 mg PO BID Doxycycline [Vibramycin] 100 mg PO BID 07/13/20 05:00 CBC W/O DIFF,HEMOGRAM [HEME] Timed (1) COMPREHENSIVE METABOLIC PN,CMP [CHEM] Timed - Plan Plan:: ASSESSMENT AND PLAN - 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 Tolerating antibiotics so far. Fever curve improving. 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 Hemoglobin stable. I suspect the ongoing episodes of diaphoresis are related to this infection and seem to be improving. -Azithromycin and atovaquone x10 days (today is day 4 of 10) Right lower lobe pneumonia-noted on chest x-ray 07/10 after the patient experienced difficulty with cough and hypoxia overnight. I suspect this was present on admission but has blossomed now that he has been hydrated. Oxygenation little low overnight but doing great today and I would anticipate resolution of hypoxia at this point. -Ceftriaxone in addition to antibiotics as outlined above while hospitalized, therapy with doxycycline and azithromycin as above should cover the pneumonia Atrial fibrillation with rapid ventricular response-back in sinus rhythm with the amiodarone infusion. -Complete amiodarone infusion -2 weeks of oral amiodarone starting tonight -Cardiac monitoring -Continue aspirin Maintenance issues - - DVT prophylaxis - patient is ambulatory - GI prophylaxis -not indicated - Nutrition -regular diet Disposition -I would anticipate discharge home after the hospital stay, likely tomorrow if stable overnight Jordon Ryan M.D.
[2020-07-12] MEDS: Ibuprofen 600 MG Tab PO PRN ×2 (09:46→14:41)
[2020-07-12] MEDS: Doxycycline 100 MG Cap PO SCH ×2 (09:46→21:08)
[2020-07-12] MEDS: methylPREDNISolone Sodium Succinate 125 MG/2 ML SDV IVPUSH SCH ×2 (10:15→21:08)
[2020-07-12] MEDS: cefTRIAXone 2 GM in Sodium Chloride 0.9% 50 ML IV SCH (13:27)
[2020-07-12] MEDS: Benzocaine/Cetylpyridinium/Menthol Lozenge MUCMEM PRN (13:33)
[2020-07-12] MEDS: Amiodarone 200 MG Tab PO SCH (21:08)
[2020-07-12] MEDS: guaiFENesin/Dextromethorphan 100-10 MG/5 ML Soln 10 ML Cup PO PRN (23:41)
[2020-07-12] MEDS: Melatonin 3 MG Tab PO PRN (23:43)
[2020-07-13] MEDS: Atovaquone 750 MG/5 ML Susp 5 ML Packet PO SCH (08:01)
[2020-07-13] MEDS: Aspirin 325 MG Tab.EC PO SCH (08:04)
[2020-07-13] MEDS: Doxycycline 100 MG Cap PO SCH (08:04)
[2020-07-13] MEDS: Azithromycin 250 MG Tab PO SCH (08:04)
[2020-07-13] MEDS: Lactobacillus Rhamnosus GG (Probiotic) Cap PO SCH (08:04)
[2020-07-13] MEDS: Amiodarone 200 MG Tab PO SCH (08:04)
[2020-07-13] MEDS: methylPREDNISolone Sodium Succinate 125 MG/2 ML SDV IVPUSH SCH (10:09)
[2020-07-13] MEDS: cefTRIAXone 2 GM in Sodium Chloride 0.9% 50 ML IV SCH ×2 (10:22→11:46)
--- NOTE | 2020-07-13 11:58 | PCM.DCSUM1 ---
Discharge Summary - Hospital Course Brief History: Mr. Singh is an 79-year-old gentleman who was admitted through the emergency department with fever, chills, sweats, headache, myalgias, secondary to anaplasmosis. 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 ICD Code: A77.49 - OTHER EHRLICHIOSIS Status: Acute Current Visit: Yes (2) Babesiosis SNOMED Code(s): 54272593 ICD Code: B60.0 - BABESIOSIS Status: Acute Current Visit: Yes (3) Community acquired pneumonia of right lower lobe of lung SNOMED Code(s): 586592077 ICD Code: J18.9 - PNEUMONIA, UNSPECIFIED ORGANISM Status: Acute Current Visit: Yes (4) Acute respiratory failure with hypoxia SNOMED Code(s): 14160065, 208689888 ICD Code: J96.01 - ACUTE RESPIRATORY FAILURE WITH HYPOXIA Status: Acute Current Visit: Yes (5) Atrial fibrillation with rapid ventricular response SNOMED Code(s): 078685413749089 ICD Code: I48.91 - UNSPECIFIED ATRIAL FIBRILLATION Status: Acute Current Visit: Yes - Patient Summary/Data Hospital Course: Mr. Singh presented to the emergency room with fevers, chills, diaphoresis as well as headache and fatigue. He reports symptoms have progressed over the past week. Initial symptoms included fatigue as well as some diffuse arthralgias and myalgias. He was not able to complete his running workouts with as much efficiency as usual. Over the last several days he has developed a mild achy diffuse headache. The headache has improved with hydration. This seems to get worse when he is not able to take enough fluids. He has had episodes of subjective fever followed by shaking chills and then diffuse diaphoresis. The most pronounced episodes have happened in the evening. He does not report abdominal pain or nausea. Appetite has been pretty good. Energy has been down from usual. No change in bowel or bladder habits. No skin rashes. No complaints of chest pain or palpitations but he has had some dizziness. [place] is not aware of obvious tick bite recently. He has not traveled or been around anyone who is been sick. He was seen in the clinic 3 days ago and started on doxycycline. He has had 2 days of doxycycline but things are getting worse. He was tested for COVID at that time and this was negative. Work-up in the emergency room revealed borderline leukopenia as well as thrombocytopenia and mild elevation of AST. C-reactive protein and procalcitonin are both quite elevated. There is suspicion for anaplasmosis. He has received ceftriaxone and IV fluids. He is also in atrial fibrillation with a rapid ventricular response. He was given IV fluids for hydration and also IV doxycycline for management of anaplasmosis. Tick borne serology was obtained at the time of admission and still not available as far as results at the time of discharge. Atrial fibrillation persisted and he was taken off of the IV diltiazem and given a 24-hour infusion of amiodarone, then transition to amiodarone 200 mg twice daily. This did result in conversion to sinus rhythm and he remained in sinus rhythm up until the time of discharge. He will be continued on amiodarone for an additional 2 weeks after discharge. The morning after admission he was noted to have a drop in hemoglobin, peripheral smear was obtained and did show evidence of babesiosis. He was started on a 10-day course of Atovaquone and azithromycin. He will be scheduled for follow-up hemoglobin 2 days after discharge and follow-up with his primary care provider within 1 week. He will complete his 10-day course after discharge. He also developed respiratory compromise with hypoxia and episodes of increased shortness of breath. Follow-up chest x-ray obtained after hydration did show bibasilar infiltrates and he was also treated with IV ceftriaxone during hospitalization. He will complete a full course of doxycycline with an additional 14 days of oral doxycycline after discharge. Activity will be as tolerated and he will resume his usual diet. - Patient Instructions Diet: Usual Diet as Tolerated Activity: As Tolerated Other/Special Instructions: Follow up hemoglobin level on Monday, July 15. Please schedule follow-up appointment with primary care provider within 1 week. - Discharge Plan *PRESCRIPTION DRUG MONITORING PROGRAM REVIEWED*: Not Applicable *COPY OF PRESCRIPTION DRUG MONITORING REPORT IN PATIENT MILLI: Not Applicable Prescriptions/Med Rec: Amiodarone [Cordarone] 200 mg PO BID #28 tablet Lactobacillus Rhamnosus GG [Culturelle] 1 cap PO BID #60 cap Atovaquone [Mepron 750 MG/5 ML Susp] 750 mg PO BIDMEALS #10 packet Doxycycline [Vibramycin] 100 mg PO BID #28 cap Azithromycin [Zithromax] 250 mg PO DAILY #5 tablet Home Medications: Home Meds Aspirin 325 mg PO DAILY 07/08/20 [History] Flaxseed Oil [Flax Oil] 0 mg PO ASDIRECTED 07/08/20 [History] Glucosam/Chondr/Collagn/Hyalur [Glucosamine & Chondroitin Cap] 0 mg PO ASDIRECTED 07/08/20 [History] Magnesium Gluconate [Mag-G] 27 mg PO DAILY 07/08/20 [History] Potassium Chloride [Klor-Con M20] 20 meq PO DAILY 07/08/20 [History] Ubidecarenone [Co Q-10] 0 mg PO ASDIRECTED 07/08/20 [History] Vitamin B Complex 0 cap PO ASDIRECTED 07/08/20 [History] Amiodarone [Cordarone] 200 mg PO BID #28 tablet 07/13/20 [Rx] Atovaquone [Mepron 750 MG/5 ML Susp] 750 mg PO BIDMEALS #10 packet 07/13/20 [Rx] Azithromycin [Zithromax] 250 mg PO DAILY #5 tablet 07/13/20 [Rx] Doxycycline [Vibramycin] 100 mg PO BID #28 cap 07/13/20 [Rx] Lactobacillus Rhamnosus GG [Culturelle] 1 cap PO BID #60 cap 07/13/20 [Rx] - Discharge Summary/Plan Comment DC Time >30 min.: No - Patient Data Vitals - Most Recent: Last Vital Signs Temp 96.9 F 07/13/20 07:00 Pulse 74 07/13/20 09:00 Resp 25 H 07/13/20 09:00 BP 149/77 H 07/13/20 09:00 Pulse Ox 95 07/13/20 09:00 Weight - Most Recent: 154 lb 15.759 oz I&O - Last 24 hours: Intake & Output 07/12/20 07/13/20 07/13/20 22:59 06:59 14:59 Intake Total 1999 800 410 Balance 1999 800 410 Lab Results - Last 24 hrs: Laboratory Results - last 24 hr 07/13/20 07/13/20 Range/Units 05:35 05:35 WBC 7.6 (4.5-11.0) K/uL RBC 3.26 L (4.30-5.90) M/uL Hgb 9.4 L (12.0-15.0) g/dL Hct 28.1 L (40.0-54.0) % MCV 86 (80-98) fL MCH 29 (27-31) pg MCHC 34 (32-36) % Plt Count 86 L (150-400) K/uL Sodium 138 L (140-148) mmol/L Potassium 4.6 (3.6-5.2) mmol/L Chloride 106 (100-108) mmol/L Carbon Dioxide 23 (21-32) mmol/L Anion Gap 13.6 (5.0-14.0) mmol/L BUN 21 H (7-18) mg/dL Creatinine 0.8 (0.8-1.3) mg/dL Est Cr Clr Drug Dosing 73.23 mL/min Estimated GFR (MDRD) > 60 (>60) Glucose 133 H (74-106) mg/dL Calcium 7.8 L (8.5-10.1) mg/dL Total Bilirubin 0.5 (0.2-1.0) mg/dL AST 77 H (15-37) U/L ALT 92 H (12-78) U/L Alkaline Phosphatase 79 (46-116) U/L Total Protein 5.7 L (6.4-8.2) g/dL Albumin 1.9 L (3.4-5.0) g/dL Globulin 3.8 H (2.3-3.5) g/dL Albumin/Globulin Ratio 0.5 L (1.2-2.2) MARY Results - Last 24 hrs: Microbiology 07/08/20 20:40 Aerobic Blood Culture - Preliminary Blood - Arm, Right NO GROWTH AFTER 4 DAYS Anaerobic Blood Culture - Preliminary NO GROWTH AFTER 4 DAYS 07/08/20 20:45 Aerobic Blood Culture - Preliminary Blood - Venous - Iv Start NO GROWTH AFTER 4 DAYS Anaerobic Blood Culture - Preliminary NO GROWTH AFTER 4 DAYS Med Orders - Current: Current Medications Acetaminophen (Tylenol) 650 mg PO Q4H PRN PRN Reason: Pain (Mild 1-3)/fever Last Admin: 07/11/20 16:33 Dose: 650 mg Documented by: Albuterol (Proventil Neb Soln) 2.5 mg NEB Q4H PRN PRN Reason: Other Last Admin: 07/11/20 08:12 Dose: 2.5 mg Documented by: Amiodarone HCl (Cordarone) 200 mg PO BID [facility] Last Admin: 07/13/20 08:04 Dose: 200 mg Documented by: Aspirin (Ecotrin) 325 mg PO DAILY [facility] Last Admin: 07/13/20 08:04 Dose: 325 mg Documented by: Atovaquone (Mepron 750 Mg/5 Ml Susp) 750 mg PO BIDMEALS [facility] Last Admin: 07/13/20 08:01 Dose: 750 mg Documented by: Azithromycin (Zithromax) 250 mg PO DAILY [facility] Stop: 07/18/20 09:01 Last Admin: 07/13/20 08:04 Dose: 250 mg Documented by: Benzocaine/Menthol (Cepacol Sore Throat) 1 lozenge MUCMEM Q2H PRN PRN Reason: Sore Throat Last Admin: 07/12/20 13:33 Dose: 1 pkg Documented by: Doxycycline Hyclate (Vibramycin) 100 mg PO BID [facility] Last Admin: 07/13/20 08:04 Dose: 100 mg Documented by: Guaifenesin/Dextromethorphan (Robitussin Dm) 10 ml PO Q4H PRN PRN Reason: Cough Last Admin: 07/12/20 23:41 Dose: 10 ml Documented by: Sodium Chloride (Normal Saline) 1,000 mls @ 25 mls/hr IV ASDIRECTED [facility] Ceftriaxone Sodium 2 gm/ (Sodium Chloride) 50 mls @ 100 mls/hr IV Q24H [facility] Last Admin: 07/13/20 11:46 Dose: Not Given Documented by: Amiodarone HCl 450 mg/ (Dextrose/Water) 250 mls @ 33.333 mls/hr IV ASDIRECTED [facility]; Protocol Last Admin: 07/11/20 10:42 Dose: 1 mg/min, 33.333 mls/hr Documented by: Ibuprofen (Motrin) 600 mg PO Q6H PRN PRN Reason: Pain/Fever Last Admin: 07/12/20 14:41 Dose: 600 mg Documented by: Lactobacillus Rhamnosus (Culturelle) 1 cap PO BID [facility] Last Admin: 07/13/20 08:04 Dose: 1 cap Documented by: Lorazepam (Ativan) 0.5 mg IVPUSH Q4H PRN PRN Reason: Nausea/Vomiting Last Admin: 07/09/20 20:55 Dose: 0.5 mg Documented by: Magnesium Hydroxide (Milk Of Magnesia) 30 ml PO Q12H PRN PRN Reason: Constipation Melatonin (Melatonin) 9 mg PO BEDTIME PRN PRN Reason: Sleep Last Admin: 07/12/20 23:43 Dose: 9 mg Documented by: Morphine Sulfate (Morphine) 2 mg IVPUSH Q2H PRN PRN Reason: pain Last Admin: 07/11/20 16:59 Dose: 2 mg Documented by: Ondansetron HCl (Zofran) 4 mg IV Q6H PRN PRN Reason: Nausea/Vomiting Ondansetron HCl (Zofran Odt) 4 mg PO Q6H PRN PRN Reason: Nausea able to take PO Senna/Docusate Sodium (Senna Plus) 1 tab PO BID PRN PRN Reason: Constipation Sodium Chloride (Saline Flush) 10 ml FLUSH ASDIRECTED PRN PRN Reason: Keep Vein Open Last Admin: 07/08/20 22:22 Dose: 10 ml Documented by: Discontinued Medications Azithromycin (Zithromax) 500 mg PO ONETIME ONE Stop: 07/09/20 10:31 Last Admin: 07/09/20 11:25 Dose: 500 mg Documented by: Diltiazem HCl (Diltiazem) 20 mg IVPUSH ONETIME ONE Stop: 07/08/20 20:46 Last Admin: 07/08/20 20:51 Dose: 20 mg Documented by: Doxycycline Hyclate (Vibramycin) 100 mg PO Q12H [facility] Stop: 07/12/20 15:00 Last Admin: 07/12/20 09:46 Dose: 100 mg Documented by: Lactated Ringer's (Ringers, Lactated) 1,000 mls @ 999 mls/hr IV ASDIRECTED [facility] Last Admin: 07/08/20 20:51 Dose: 999 mls/hr Documented by: Ceftriaxone Sodium 1 gm/ (Sodium Chloride) 50 mls @ 100 mls/hr IV STAT ONE Stop: 07/08/20 21:10 Last Admin: 07/08/20 20:55 Dose: 100 mls/hr Documented by: Diltiazem HCl 100 mg/ Sodium (Chloride) 100 mls @ 5 mls/hr IV TITRATE [facility]; Protocol Last Admin: 07/11/20 08:08 Dose: 10 mg/hr, 10 mls/hr Documented by: Sodium Chloride (Normal Saline) 100 mls @ 3 mls/sec IV ASDIRECTED [facility] Last Admin: 07/08/20 22:23 Dose: 3 mls/sec Documented by: Lactated Ringer's (Ringers, Lactated) 1,000 mls @ 999 mls/hr IV ASDIRECTED [facility] Last Admin: 07/08/20 22:31 Dose: 999 mls/hr Documented by: Sodium Chloride (Normal Saline) 1,000 mls @ 100 mls/hr IV ASDIRECTED [facility] Last Admin: 07/09/20 00:05 Dose: 100 mls/hr Documented by: Doxycycline Hyclate 100 mg/ (Sodium Chloride) 100 mls @ 100 mls/hr IV Q12H [facility] Last Admin: 07/11/20 00:17 Dose: 100 mls/hr Documented by: Sodium Chloride (Normal Saline) 1,000 mls @ 50 mls/hr IV ASDIRECTED [facility] Last Admin: 07/10/20 08:28 Dose: 50 mls/hr Documented by: Amiodarone HCl/Dextrose 150 mg (/ Premix) 100 mls @ 400 mls/hr IV ONETIME ONE Stop: 07/11/20 10:14 Last Admin: 07/11/20 10:17 Dose: 400 mls/hr Documented by: Iopamidol (Isovue-370 (76%)) 100 ml IV . DIRECTED [facility] Last Admin: 07/08/20 22:23 Dose: 100 ml Documented by: Methylprednisolone Sodium Succinate (Solu-Medrol) 125 mg IVPUSH ONETIME ONE Stop: 07/11/20 22:01 Last Admin: 07/11/20 22:07 Dose: 125 mg Documented by: Methylprednisolone Sodium Succinate (Solu-Medrol) 62.5 mg IVPUSH Q12H [facility] Stop: 07/13/20 10:01 Last Admin: 07/13/20 10:09 Dose: 62.5 mg Documented by: - Exam Quality Assessment: Reports: DVT Prophylaxis General: Reports: Alert, Oriented, Cooperative, No Acute Distress Lungs: Reports: Clear to Auscultation, Normal Respiratory Effort Cardiovascular: Reports: Regular Rate, Regular Rhythm, No Murmurs GI/Abdominal Exam: Soft, Non-Tender, No Organomegaly, No Distention Extremities: Non-Tender, No Pedal Edema *Q Meaningful Use (DIS) - VTE *Q VTE Pharmacological Contraindications *Q: Thrombocytopenia
[2020-07-14 14:11] LABS: HGE IGG TITER Negative (Neg:<1:64); HGE IGM TITER Negative (Neg:<1:20)
== END 2020-07-13 12:40 | disposition home or self-care (01) | DRG 867 ==
LOC: JP.ED 19:38 → JP.ICU 23:30 → OBSVTOIN 07-10 08:57
PROVIDERS: ADMIT Internal Medicine; ATTEND Internal Medicine
DX: A77.49 Other ehrlichiosis (principal); J18.9 Pneumonia, unspecified organism; J96.01 Acute respiratory failure with hypoxia; B60.0 Babesiosis; Z20.828 Contact with and (suspected) exposure to other viral communicable diseases; I48.91 Unspecified atrial fibrillation; D69.6 Thrombocytopenia, unspecified; Z79.82 Long term (current) use of aspirin; Z79.899 Other long term (current) drug therapy
CPT/HCPCS: 36415 ×2; 70450; 70496; 71046 ×2; 80048 ×2; 80053; 81001; 83605; 83690; 83735 ×2; 84100; 84145; 84484; 85025; 85027 ×2; 86140; 86666 ×2; 87040 ×2; 93005; 96365; 96367; 96376; 99285; A9270 ×17; J0696; J2060; J3490 ×6; J7030 ×3; J7050 ×7; J7120 ×2; Q9967; 85651; 93010; 94640; 96366; 96368; 96375; G0378; J0282; J2270; J2930; J7060; U0002

== ENCOUNTER 2023-04-23 10:50 | Emergency (ER) | payer OTHER, MEDICARE | END 2023-04-23 14:13 | disposition home or self-care (01) | LOC: JP.ED 10:50 | DX: S40.861A Insect bite (nonvenomous) of right upper arm, initial encounter (principal); R68.83 Chills (without fever); R11.10 Vomiting, unspecified; Z79.82 Long term (current) use of aspirin; W57.XXXA Bitten or stung by nonvenomous insect and other nonvenomous arthropods, initial encounter | CPT/HCPCS: 99281 ==

== ENCOUNTER 2023-08-22 12:16 | Emergency (ER) | payer OTHER, MEDICARE ==
[2023-08-22 13:03] LABS: BASOPHILS ABSOLUTE AUTO 0.05 K/uL (0.00-0.10); BASOPHILS PERCENT AUTO 1.1 % (0.1-1.3); EOSINOPHILS ABSOLUTE AUTO 0.18 K/uL (0.00-0.40); EOSINOPHILS PERCENT AUTO 3.8 % (0.0-5.4); HEMATOCRIT 37.8 % (38.4-49.7); HEMOGLOBIN 12.8 g/dL (12.9-16.9); IMMATURE GRAN ABSOLUTE AUTO 0.04 K/uL (0.00-0.23); IMMATURE GRAN PERCENT AUTO 0.8 % (0.0-0.7); LYMPHOCYTES ABSOLUTE AUTO 1.59 K/uL (0.8-3.3); LYMPHOCYTES PERCENT AUTO 33.5 % (11.4-47.7); MEAN CORPUSCULAR HEMOGLOBIN 30.3 pg (31.6-35.5); MEAN CORPUSCULAR HGB CONC 33.9 g/dL (31.6-35.5); MEAN CORPUSCULAR VOLUME 89.4 fL (81.4-99.0); MONOCYTES ABSOLUTE AUTO 0.44 K/uL (0.20-0.90); MONOCYTES PERCENT AUTO 9.3 % (3.3-12.6); NEUTROPHILS ABSOLUTE AUTO 2.45 K/uL (1.0-7.6); NEUTROPHILS PERCENT AUTO 51.5 % (40.0-78.1); PLATELET COUNT,PLT 249 K/uL (130-375); RED BLOOD CELL COUNT 4.23 M/uL (4.14-5.76); WHITE BLOOD CELL COUNT,WBC 4.8 K/uL (3.2-11.0)
[2023-08-22 13:22] LABS: PROTHROMBIN TIME 10.4 sec (9.2-10.6)
[2023-08-22 13:28] LABS: ALANINE AMINOTRANSFERASE,ALT 28 U/L (12-78); ALBUMIN 3.5 g/dL (3.4-5.0); ALKALINE PHOSPHATASE 87 U/L (46-116); ASPARTATE AMNIOTRANSFERASE,AST 26 U/L (15-37); BILIRUBIN TOTAL 0.3 mg/dL (0.2-1.0); BLOOD UREA NITROGEN,BUN 17 mg/dL (7-18); CALCIUM 8.7 mg/dL (8.5-10.1); CARBON DIOXIDE,CO2 29 mmol/L (21-32); CHLORIDE,CL 103 mmol/L (100-108); CREATININE 0.9 mg/dL (0.8-1.3); ESTIMATED GFR 84 mL/min (>60); GLUCOSE RANDOM 87 mg/dL (74-106); POTASSIUM,K 4.2 mmol/L (3.6-5.2); PROTEIN TOTAL,TP 7.2 g/dL (6.4-8.2); SODIUM,NA 137 mmol/L (140-148)
[2023-08-22 13:29] LABS: ANION GAP 9.2 mmol/L (5.0-14.0)
[2023-08-22] MEDS ORDERED: Sodium Chloride 0.9% 10 ML Syringe FLUSH ONE (14:28)
[2023-08-22] MEDS ORDERED: Sodium Chloride 0.9% 75 ML IV SCH (14:30)
[2023-08-22] MEDS ORDERED: Iopamidol 755 Mg/ML 100 ML Bottle IV SCH (14:30)
== END 2023-08-22 17:06 | disposition home or self-care (01) ==
LOC: JP.ED 12:16
DX: I48.92 Unspecified atrial flutter (principal); I48.91 Unspecified atrial fibrillation; Z79.01 Long term (current) use of anticoagulants
CPT/HCPCS: 36415; 71045; 71045-26; 71275; 71275-26; 80053; 84484; 85025; 85379; 85610; 99284; J3490; Q9967

== ENCOUNTER 2023-08-23 15:41 | Emergency (ER) | payer OTHER, MEDICARE ==
[2023-08-23] MEDS ORDERED: Sodium Chloride 0.9% 10 ML Syringe FLUSH PRN (15:50)
[2023-08-23 15:56] LABS: BASOPHILS ABSOLUTE AUTO 0.05 K/uL (0.00-0.10); BASOPHILS PERCENT AUTO 0.8 % (0.1-1.3); EOSINOPHILS PERCENT AUTO 3.1 % (0.0-5.4); HEMATOCRIT 37.6 % (38.4-49.7); HEMOGLOBIN 12.6 g/dL (12.9-16.9); IMMATURE GRAN ABSOLUTE AUTO 0.03 K/uL (0.00-0.23); IMMATURE GRAN PERCENT AUTO 0.5 % (0.0-0.7); LYMPHOCYTES ABSOLUTE AUTO 1.65 K/uL (0.8-3.3); LYMPHOCYTES PERCENT AUTO 25.3 % (11.4-47.7); MEAN CORPUSCULAR HEMOGLOBIN 30.2 pg (31.6-35.5); MEAN CORPUSCULAR HGB CONC 33.5 g/dL (31.6-35.5); MEAN CORPUSCULAR VOLUME 90.2 fL (81.4-99.0); MONOCYTES ABSOLUTE AUTO 0.63 K/uL (0.20-0.90); MONOCYTES PERCENT AUTO 9.7 % (3.3-12.6); NEUTROPHILS ABSOLUTE AUTO 3.96 K/uL (1.0-7.6); NEUTROPHILS PERCENT AUTO 60.6 % (40.0-78.1); PLATELET COUNT,PLT 244 K/uL (130-375); RED BLOOD CELL COUNT 4.17 M/uL (4.14-5.76); WHITE BLOOD CELL COUNT,WBC 6.5 K/uL (3.2-11.0)
[2023-08-23 16:16] LABS: PROTHROMBIN TIME 10.6 sec (9.2-10.6); PTT,PARTIAL THROMBOPLSTIN TIME 23.9 sec (21.8-27.3)
[2023-08-23 16:20] LABS: A/G RATIO 1.2 (1.2-2.2); ALANINE AMINOTRANSFERASE,ALT 30 U/L (12-78); ALKALINE PHOSPHATASE 90 U/L (46-116); ANION GAP 11.7 mmol/L (5.0-14.0); ASPARTATE AMNIOTRANSFERASE,AST 28 U/L (15-37); BILIRUBIN TOTAL 0.4 mg/dL (0.2-1.0); BLOOD UREA NITROGEN,BUN 26 mg/dL (7-18); CARBON DIOXIDE,CO2 29 mmol/L (21-32); CHLORIDE,CL 102 mmol/L (100-108); EST CRCL DRUG DOSING (CG) 52.92 mL/min; ESTIMATED GFR 74 mL/min (>60); GLUCOSE RANDOM 89 mg/dL (74-106); POTASSIUM,K 3.7 mmol/L (3.6-5.2); PROTEIN TOTAL,TP 7.4 g/dL (6.4-8.2); SODIUM,NA 139 mmol/L (140-148); TROPONIN I HIGH SENSITIVITY 51.1 pg/mL (<=60.3)
[2023-08-23] MEDS ORDERED: Clopidogrel 75 MG Tab PO ONE (17:08)
[2023-08-23] MEDS ORDERED: Iopamidol 755 Mg/ML 100 ML Bottle IV SCH (17:45)
[2023-08-23] MEDS ORDERED: Sodium Chloride 0.9% 100 ML IV SCH (17:45)
== END 2023-08-23 19:27 | disposition home or self-care (01) ==
LOC: JP.ED 15:41
DX: G45.9 Transient cerebral ischemic attack, unspecified (principal); I48.91 Unspecified atrial fibrillation; Z79.82 Long term (current) use of aspirin
CPT/HCPCS: 36415; 70450; 70496; 70498; 80053; 82947; 84484; 85025; 85610; 85730; 93005; 99284; A9270; J3490; Q9967; 93010; 99283

== ENCOUNTER 2023-11-30 17:19 | Emergency (ER) | payer OTHER, MEDICARE ==
[2023-11-30] MEDS ORDERED: Tranexamic Acid 1,000 MG/10 ML Vial TOP ONE (17:21)
== END 2023-11-30 19:30 | disposition home or self-care (01) ==
LOC: JP.ED 17:19
DX: R04.0 Epistaxis (principal); I10 Essential (primary) hypertension; E78.00 Pure hypercholesterolemia, unspecified; I48.91 Unspecified atrial fibrillation; Z87.891 Personal history of nicotine dependence; Z79.899 Other long term (current) drug therapy; Z79.82 Long term (current) use of aspirin
CPT/HCPCS: 36415; 85018; 99283

== ENCOUNTER 2023-12-18 17:11 | Emergency (ER) | payer OTHER, MEDICARE ==
[2023-12-18] MEDS: Silver Nitrate Applicator Each TOP ONE (18:17)
== END 2023-12-18 18:57 | disposition home or self-care (01) ==
LOC: JP.ED 17:11
DX: R04.0 Epistaxis (principal); I10 Essential (primary) hypertension; E78.00 Pure hypercholesterolemia, unspecified; I48.91 Unspecified atrial fibrillation; Z86.73 Personal history of transient ischemic attack (TIA), and cerebral infarction without residual deficits; Z79.82 Long term (current) use of aspirin; Z79.899 Other long term (current) drug therapy
CPT/HCPCS: 30901; 99283